=== PATIENT | male | born 1945 | race Hispanic/Latino ===

== ENCOUNTER → 2017-08-29 | Outpatient (CLI) | payer OTHER ==
[~2017-08-29] MED LIST: ASPI-1197 PO; CHOL500050 PO; CITA-107 PO; DONE5TAB26 PO; DOXY100C2 PO; FERS325 PO; FOLIC ACID PO; GLIM4TAB3 PO; LEVO5TAB13 PO; MECL-129 PO; METF500T6 PO; METO-391 PO; OMEP40CA37 PO; SIMV20TA6 PO; SITA50TA PO; TAMS0.4C32 PO; VITAMIN B12 PO
== END | disposition home or self-care (01) ==
LOC: SHCH 14:26
PROVIDERS: ATTEND Internal Medicine Cardiovascular Disease
DX: I73.9 Peripheral vascular disease, unspecified (principal)
CPT/HCPCS: 93925

== ENCOUNTER 2017-09-05 10:58 | Inpatient (IN) | payer OTHER ==
[~2017-09-05] VITALS: Ht 175.3 cm; Wt 76.0 kg
[2017-09-05 11:30] LABS: BASOPHILS % (AUTO) 0.5 % (0.0-5.0); EOSINOPHILS % (AUTO) 1.8 % (0.0-8.0); HEMATOCRIT 36.1 % (42-54); LYMPHOCYTES % (AUTO) 8.2 % (21.0-51.0); MEAN CORPUSCULAR HEMOGLOBIN 28.8 pg (27.0-33.0); MEAN CORPUSCULAR HGB CONC 35.1 g/dL (32.0-36.0); MEAN CORPUSCULAR VOLUME 81.9 fL (79-99); MONOCYTES % (AUTO) 5.5 % (3.0-13.0); PLATELET COUNT (AUTO) 147 K/uL (130-400); RED CELL DISTRIBUTION WIDTH 14.4 % (11.0-15.5); WHITE BLOOD COUNT (AUTO) 8.5 K/uL (4.8-10.8)
[2017-09-05 11:45] LABS: INR 1.06 (0.85-1.15); PARTIAL THROMBOPLASTIN TIME 30.1 SEC (26.3-35.5); PROTHROMBIN TIME 11.1 SEC (9.6-11.6)
[2017-09-05 11:53] LABS: CREATININE 1.3 mg/dL (0.5-1.5)
[2017-09-05 11:57] LABS: ALBUMIN 3.6 g/dL (3.5-5.0); BILIRUBIN,TOTAL 0.6 mg/dL (0.2-1.0); TOTAL PROTEIN, SERUM 7.1 g/dL (6.0-8.3)
[2017-09-05] MEDS ORDERED: GUAIFENESIN SUGAR-FREE 100 MG/5 ML UDCUP ONE (13:21)
[2017-09-05] MEDS ORDERED: ALBUTEROL SULFATE 0.083% 2.5 MG/3 ML INH IH ONE (13:22)
[2017-09-05] MEDS ORDERED: BENZONATATE 100 MG CAPSULE PO ONE (13:22)
[2017-09-05] MEDS ORDERED: ACETAMINOPHEN EXTRA STRENGTH 500 MG TABLET ONE (13:22)
[2017-09-05] MEDS ORDERED: ONDANSETRON HCL 4 MG/2 ML VIAL ONE (15:45)
[2017-09-05 17:50] LABS: CREATINE KINASE MB 1.1 ng/mL (0.5-3.6); CREATINE KINASE, TOTAL 130 U/L (21-232); MYOGLOBIN 175 ng/mL (10-92); TROPONIN I < 0.04 ng/mL (0.00-0.06)
[2017-09-05 18:20] VITALS: BP 113/56
[2017-09-05] MEDS: ASPIRIN 325 MG TABLET PO SCH (18:51)
[2017-09-05] MEDS ORDERED: IPRATROPIUM/ALBUTEROL SULFATE 3 ML SOLUTION IH PRN (19:00)
[2017-09-05] MEDS ORDERED: ONDANSETRON HCL 4 MG/2 ML VIAL IVP PRN (19:00)
[2017-09-05] MEDS ORDERED: ACETAMINOPHEN 325 MG TAB PO PRN (19:00)
[2017-09-05 20:00] VITALS: BP 113/56
[2017-09-05] MEDS: GUAIFENESIN SUGAR-FREE 100 MG/5 ML UDCUP PO PRN (20:02)
[2017-09-05] MEDS: DOXYCYCLINE 100MG+NS 250ML 250 ML IV SCH (21:05)
[2017-09-05] MEDS ORDERED: BENZONATATE 100 MG CAPSULE PO PRN (23:15)
[2017-09-05 23:37] VITALS: BP 101/46
[2017-09-06 03:55] VITALS: BP 90/65
[2017-09-06 04:32] LABS: HEMATOCRIT 33.2 % (42-54); MEAN CORPUSCULAR HGB CONC 34.3 g/dL (32.0-36.0); MEAN CORPUSCULAR VOLUME 81.9 fL (79-99); PLATELET COUNT (AUTO) 125 K/uL (130-400); RED BLOOD CELL COUNT(AUTO) 4.06 MIL/uL (4.50-6.20); RED CELL DISTRIBUTION WIDTH 14.9 % (11.0-15.5); WHITE BLOOD COUNT (AUTO) 7.5 K/uL (4.8-10.8)
[2017-09-06 04:51] LABS: CREATININE 1.5 mg/dL (0.5-1.5)
[2017-09-06 07:00] VITALS: BP 124/47
[2017-09-06] MEDS: ASPIRIN 325 MG TABLET PO SCH (08:15)
[2017-09-06] MEDS: OSELTAMIVIR PHOSPHATE 75 MG CAP PO SCH ×2 (08:16→21:36)
[2017-09-06] MEDS: FAMOTIDINE 20MG TAB 20 MG TAB PO SCH ×2 (08:16→21:36)
[2017-09-06] MEDS: GUAIFENESIN SUGAR-FREE 100 MG/5 ML UDCUP PO PRN ×2 (08:18→19:36)
[2017-09-06] MEDS: DOXYCYCLINE 100MG+NS 250ML 250 ML IV SCH ×2 (08:24→21:35)
[2017-09-06] MEDS ORDERED: LIDOCAINE HCL-MPF 1% 2ML VIAL IVP PRN (09:45)
[2017-09-06] MEDS ORDERED: POTASSIUM CHLORIDE 20MEQ/100ML 100 ML IV PRN (09:45)
[2017-09-06] MEDS ORDERED: GUAIFENESIN-DM 200/20 MG 10 ML PO PRN (09:45)
[2017-09-06] MEDS ORDERED: LACTULOSE 20 GM/30 ML UDCUP PO PRN (09:45)
[2017-09-06] MEDS ORDERED: POTASSIUM CHLORIDE 10% ELIXIR 20 MEQ/15 ML UDCUP PO PRN (09:45)
[2017-09-06] MEDS ORDERED: HYDRALAZINE HCL 20 MG/ML VIAL IV PRN (09:45)
[2017-09-06] MEDS ORDERED: MAG HYDROX/AL HYDROX/SIMETH ES 30 ML SUSP UDCUP PO PRN (09:45)
[2017-09-06] MEDS ORDERED: NITROGLYCERIN 0.4 MG SL TAB SL PRN (09:45)
[2017-09-06] MEDS ORDERED: ACETAMINOPHEN 325 MG TAB PO PRN ×2 (09:45)
[2017-09-06 12:11] VITALS: BP 107/37
[2017-09-06] MEDS: IPRATROPIUM/ALBUTEROL SULFATE 3 ML SOLUTION IH PRN ×2 (14:20→23:18)
[2017-09-06 16:00] VITALS: BP 101/55
[2017-09-06 19:25] VITALS: BP 96/63
[2017-09-06] MEDS: METOPROLOL SUCCINATE 25 MG PO SCH (21:00)
[2017-09-06] MEDS: **HM** LEVOCETIRIZINE 5MG PO SCH (21:00)
[2017-09-06] MEDS ORDERED: METFORMIN HCL 500 MG TABLET PO SCH (21:00)
[2017-09-06] MEDS: CITALOPRAM 20 MG TABLET PO SCH (21:36)
[2017-09-06] MEDS: TAMSULOSIN HCL 0.4 MG CAP.ER.24H PO SCH (21:36)
[2017-09-06] MEDS: ONDANSETRON HCL 4 MG/2 ML VIAL IV PRN (21:40)
[2017-09-07] VITALS (7 sets, daily range): BP systolic 95–142; BP diastolic 37–78
[2017-09-07 06:52] LABS: HEMATOCRIT 30.8 % (42-54); MEAN CORPUSCULAR HEMOGLOBIN 28.9 pg (27.0-33.0); MEAN CORPUSCULAR HGB CONC 34.8 g/dL (32.0-36.0); MEAN CORPUSCULAR VOLUME 83.1 fL (79-99); PLATELET COUNT (AUTO) 117 K/uL (130-400); RED BLOOD CELL COUNT(AUTO) 3.71 MIL/uL (4.50-6.20); WHITE BLOOD COUNT (AUTO) 6.1 K/uL (4.8-10.8)
[2017-09-07 06:54] LABS: CREATININE 1.6 mg/dL (0.5-1.5); POTASSIUM 3.7 mmol/L (3.5-5.1)
[2017-09-07 07:17] LABS: B-TYPE NATRIURETIC PEPTIDE 595 pg/mL (0-100)
[2017-09-07] MEDS: IPRATROPIUM/ALBUTEROL SULFATE 3 ML SOLUTION IH PRN (08:27)
[2017-09-07] MEDS: METOPROLOL SUCCINATE 25 MG PO SCH ×2 (09:00→20:50)
[2017-09-07] MEDS: GLIMEPIRIDE 2 MG TABLET PO SCH (10:57)
[2017-09-07] MEDS: OSELTAMIVIR PHOSPHATE 75 MG CAP PO SCH ×2 (10:57→20:44)
[2017-09-07] MEDS: FERROUS SULFATE 325 MG TABLET.DR PO SCH (10:57)
[2017-09-07] MEDS: LINAGLIPTIN 5 MG TABLET PO SCH (10:57)
[2017-09-07] MEDS: ASPIRIN 81MG TAB.CHEW PO SCH (10:57)
[2017-09-07] MEDS: DOXYCYCLINE 100MG+NS 250ML 250 ML IV SCH ×2 (10:58→20:44)
[2017-09-07] MEDS: FAMOTIDINE 20MG TAB 20 MG TAB PO SCH ×2 (11:02→20:44)
[2017-09-07] MEDS: GUAIFENESIN SUGAR-FREE 100 MG/5 ML UDCUP PO PRN (11:52)
[2017-09-07] MEDS: ONDANSETRON HCL 4 MG/2 ML VIAL IV PRN (13:42)
[2017-09-07] MEDS: POTASSIUM CHLORIDE 20 MEQ ERTAB PO PRN ×2 (16:50→18:42)
[2017-09-07] MEDS: CITALOPRAM 20 MG TABLET PO SCH (20:44)
[2017-09-07] MEDS: TAMSULOSIN HCL 0.4 MG CAP.ER.24H PO SCH (20:44)
[2017-09-07] MEDS: **HM** LEVOCETIRIZINE 5MG PO SCH (20:45)
[2017-09-08 03:55] VITALS: BP 134/49
[2017-09-08 06:14] LABS: CREATININE 1.4 mg/dL (0.5-1.5)
[2017-09-08 07:00] VITALS: BP 137/68
[2017-09-08] MEDS: METOPROLOL SUCCINATE 25 MG PO SCH ×2 (09:00→21:00)
[2017-09-08] MEDS: DOXYCYCLINE 100MG+NS 250ML 250 ML IV SCH ×2 (09:18→22:33)
[2017-09-08] MEDS: ASPIRIN 81MG TAB.CHEW PO SCH (09:19)
[2017-09-08] MEDS: FAMOTIDINE 20MG TAB 20 MG TAB PO SCH ×2 (09:19→22:34)
[2017-09-08] MEDS: LINAGLIPTIN 5 MG TABLET PO SCH (09:19)
[2017-09-08] MEDS: GLIMEPIRIDE 2 MG TABLET PO SCH (09:19)
[2017-09-08] MEDS: FERROUS SULFATE 325 MG TABLET.DR PO SCH (09:19)
[2017-09-08] MEDS: OSELTAMIVIR PHOSPHATE 75 MG CAP PO SCH ×2 (09:20→22:34)
[2017-09-08 11:00] VITALS: BP 155/49
[2017-09-08 11:59] LABS: APPEARANCE,URINE Clear (CLEAR); BILIRUBIN,URINE Negative (NEGATIVE); COLOR,URINE Yellow (YELLOW); GLUCOSE, URINE (UA) Negative (NEGATIVE); KETONES,URINE Negative (NEGATIVE); LEUKOCYTE ESTERASE ,URINE Negative (NEGATIVE); NITRATE,URINE Negative (NEGATIVE); OCCULT BLOOD,URINE Negative (NEGATIVE); PROTEIN,URINE Negative (NEGATIVE); UROBILINOGEN,URINE 0.2 mg/dL (0.2-1.0)
[2017-09-08] MEDS: FINASTERIDE 5 MG TABLET PO SCH (16:43)
[2017-09-08 17:57] VITALS: BP 111/57
[2017-09-08 19:05] VITALS: BP 178/78
[2017-09-08] MEDS: IPRATROPIUM/ALBUTEROL SULFATE 3 ML SOLUTION IH PRN (19:36)
[2017-09-08] MEDS: **HM** LEVOCETIRIZINE 5MG PO SCH (21:00)
[2017-09-08] MEDS: CITALOPRAM 20 MG TABLET PO SCH (22:34)
[2017-09-08] MEDS: TAMSULOSIN HCL 0.4 MG CAP.ER.24H PO SCH (22:34)
[2017-09-08 23:46] VITALS: BP 112/75
[2017-09-08] MEDS: GUAIFENESIN SUGAR-FREE 100 MG/5 ML UDCUP PO PRN (23:46)
[2017-09-09 04:06] VITALS: BP 138/46
[2017-09-09] MEDS: DOXYCYCLINE 100MG+NS 250ML 250 ML IV SCH ×2 (08:49→20:04)
[2017-09-09] MEDS: CYANOCOBALAMIN (VITAMIN B-12) 1,000 MCG TABLET PO SCH (08:51)
[2017-09-09] MEDS: GLIMEPIRIDE 2 MG TABLET PO SCH (08:51)
[2017-09-09] MEDS: LINAGLIPTIN 5 MG TABLET PO SCH (08:51)
[2017-09-09] MEDS: FERROUS SULFATE 325 MG TABLET.DR PO SCH (08:51)
[2017-09-09] MEDS: FOLIC ACID/VITAMIN B COMP W-C 1 MG CAPSULE PO SCH (08:51)
[2017-09-09] MEDS: FINASTERIDE 5 MG TABLET PO SCH (08:51)
[2017-09-09] MEDS: ASPIRIN 81MG TAB.CHEW PO SCH (08:51)
[2017-09-09] MEDS: METOPROLOL SUCCINATE 25 MG PO SCH ×2 (08:51→20:06)
[2017-09-09] MEDS: FAMOTIDINE 20MG TAB 20 MG TAB PO SCH ×2 (08:51→20:04)
[2017-09-09] MEDS: OSELTAMIVIR PHOSPHATE 75 MG CAP PO SCH ×2 (08:51→20:04)
[2017-09-09] MEDS: GUAIFENESIN SUGAR-FREE 100 MG/5 ML UDCUP PO PRN ×2 (09:27→18:53)
[2017-09-09 09:55] VITALS: BP 129/69
[2017-09-09 13:19] VITALS: BP 104/58
[2017-09-09 18:28] VITALS: BP 135/53
[2017-09-09 19:00] VITALS: BP 98/68
[2017-09-09] MEDS: TAMSULOSIN HCL 0.4 MG CAP.ER.24H PO SCH (20:04)
[2017-09-09] MEDS: CITALOPRAM 20 MG TABLET PO SCH (20:04)
[2017-09-09] MEDS: **HM** LEVOCETIRIZINE 5MG PO SCH (20:05)
[2017-09-10] VITALS: BP 156/54
[2017-09-10 04:00] VITALS: BP 148/50
[2017-09-10 04:59] LABS: HEMATOCRIT 34.2 % (42-54); MEAN CORPUSCULAR HEMOGLOBIN 27.4 pg (27.0-33.0); MEAN CORPUSCULAR HGB CONC 33.4 g/dL (32.0-36.0); MEAN CORPUSCULAR VOLUME 81.9 fL (79-99); NUCLEATED RED BLOOD CELLS 0.1 % (0.0-0.19); PLATELET COUNT (AUTO) 164 K/uL (130-400); RED BLOOD CELL COUNT(AUTO) 4.18 MIL/uL (4.50-6.20); RED CELL DISTRIBUTION WIDTH 14.6 % (11.0-15.5); WHITE BLOOD COUNT (AUTO) 5.7 K/uL (4.8-10.8)
[2017-09-10 05:38] LABS: POTASSIUM 3.6 mmol/L (3.5-5.1)
[2017-09-10] MEDS: POTASSIUM CHLORIDE 20 MEQ ERTAB PO PRN ×2 (06:07→12:44)
[2017-09-10] MEDS: GUAIFENESIN SUGAR-FREE 100 MG/5 ML UDCUP PO PRN (06:08)
[2017-09-10 08:00] VITALS: BP 125/73
[2017-09-10] MEDS: FERROUS SULFATE 325 MG TABLET.DR PO SCH (09:00)
[2017-09-10] MEDS: METOPROLOL SUCCINATE 25 MG PO SCH (09:00)
[2017-09-10 12:00] VITALS: BP 156/70
[2017-09-10] MEDS: CYANOCOBALAMIN (VITAMIN B-12) 1,000 MCG TABLET PO SCH (12:18)
[2017-09-10] MEDS: FAMOTIDINE 20MG TAB 20 MG TAB PO SCH (12:18)
[2017-09-10] MEDS: LINAGLIPTIN 5 MG TABLET PO SCH (12:18)
[2017-09-10] MEDS: GLIMEPIRIDE 2 MG TABLET PO SCH (12:19)
[2017-09-10] MEDS: FOLIC ACID/VITAMIN B COMP W-C 1 MG CAPSULE PO SCH (12:19)
[2017-09-10] MEDS: OSELTAMIVIR PHOSPHATE 75 MG CAP PO SCH (12:19)
[2017-09-10] MEDS: ASPIRIN 81MG TAB.CHEW PO SCH (12:20)
[2017-09-10] MEDS: FINASTERIDE 5 MG TABLET PO SCH (12:20)
[2017-09-10] MEDS: DOXYCYCLINE 100MG+NS 250ML 250 ML IV SCH (12:44)
[2017-09-15] MEDS ORDERED: ERGOCALCIFEROL (VITAMIN D2) 50,000 UNIT CAPSULE PO SCH (09:00)
== END 2017-09-10 15:30 | DRG 194 ==
LOC: EDH 10:58 → OBSVTOIN 16:00 → EDHIP 16:00 → 3DH 17:39
PROVIDERS: ADMIT Internal Medicine; ATTEND Internal Medicine
DX: J10.00 Influenza due to other identified influenza virus with unspecified type of pneumonia (principal); I50.22 Chronic systolic (congestive) heart failure; E11.65 Type 2 diabetes mellitus with hyperglycemia; I42.9 Cardiomyopathy, unspecified; I11.0 Hypertensive heart disease with heart failure; J20.9 Acute bronchitis, unspecified; J10.1 Influenza due to other identified influenza virus with other respiratory manifestations; E78.5 Hyperlipidemia, unspecified; I25.10 Atherosclerotic heart disease of native coronary artery without angina pectoris; F32.9 Major depressive disorder, single episode, unspecified; N40.1 Benign prostatic hyperplasia with lower urinary tract symptoms; R33.8 Other retention of urine; Z95.810 Presence of automatic (implantable) cardiac defibrillator; Z90.79 Acquired absence of other genital organ(s); Z95.1 Presence of aortocoronary bypass graft
CPT/HCPCS: 36415; 71045; 71046; 71250; 74176; 80048; 80053; 81003; 82550; 82553; 82948; 83874; 83880; 84484; 85025; 85027; 85610; 85730; 87088; 87633; 87804; 93005; 94640; 94664; J2405; J3490

== ENCOUNTER 2018-08-31 06:38 | Emergency (ER) | payer OTHER ==
[~2018-08-31 06:38] MED LIST changes: +METF-444 PO; -METF500T6 PO
[2018-08-31] MEDS ORDERED: ONDANSETRON HCL 4 MG/2 ML VIAL ONE (06:54)
[2018-08-31 07:13] LABS: CREATININE 1.4 mg/dL (0.5-1.5); POTASSIUM 3.9 mmol/L (3.5-5.1)
[2018-08-31] MEDS ORDERED: SODIUM CHLORIDE 0.9% 1000ML 1,000 ML IV ONE ×3 (07:18→10:43)
[2018-08-31 07:25] LABS: BASOPHILS % (AUTO) 0.6 % (0.0-5.0); EOSINOPHILS % (AUTO) 0.3 % (0.0-8.0); HEMATOCRIT 35.7 % (42-54); LYMPHOCYTES % (AUTO) 7.2 % (21.0-51.0); MEAN CORPUSCULAR HEMOGLOBIN 27.8 pg (27.0-33.0); MEAN CORPUSCULAR HGB CONC 33.2 g/dL (32.0-36.0); MEAN CORPUSCULAR VOLUME 83.8 fL (79-99); MONOCYTES % (AUTO) 4.2 % (3.0-13.0); NEUTROPHILS % (AUTO) 87.7 % (40.0-77.0); PLATELET COUNT (AUTO) 132 K/uL (130-400); RED BLOOD CELL COUNT(AUTO) 4.27 MIL/uL (4.50-6.20); RED CELL DISTRIBUTION WIDTH 13.6 % (11.0-15.5); WHITE BLOOD COUNT (AUTO) 10.7 K/uL (4.8-10.8)
[2018-08-31 07:28] LABS: ALBUMIN 3.8 g/dL (3.5-5.0); BILIRUBIN,TOTAL 0.4 mg/dL (0.2-1.0); TOTAL PROTEIN, SERUM 7.4 g/dL (6.0-8.3)
== END 2018-08-31 12:23 | disposition home or self-care (01) ==
LOC: EDH 06:38
DX: K52.9 Noninfective gastroenteritis and colitis, unspecified (principal); E86.0 Dehydration; I10 Essential (primary) hypertension; E11.9 Type 2 diabetes mellitus without complications; E78.5 Hyperlipidemia, unspecified; Z95.1 Presence of aortocoronary bypass graft; Z87.891 Personal history of nicotine dependence
CPT/HCPCS: 36415; 71045; 80053; 82150; 82550; 83690; 84484; 85025; 87804 ×2; 93005; 96361; 96374; 99284; J2405; J7030 ×3

== ENCOUNTER 2018-09-08 17:30 | Inpatient (IN) | payer OTHER ==
[~2018-09-08] VITALS: Ht 160 cm; Wt 72.6 kg
[2018-09-08 18:05] LABS: BASOPHILS % (AUTO) 0.3 % (0.0-5.0); EOSINOPHILS % (AUTO) 0.1 % (0.0-8.0); HEMATOCRIT 34.3 % (42-54); LYMPHOCYTES % (AUTO) 9.5 % (21.0-51.0); MEAN CORPUSCULAR HEMOGLOBIN 27.8 pg (27.0-33.0); MEAN CORPUSCULAR HGB CONC 33.7 g/dL (32.0-36.0); MEAN CORPUSCULAR VOLUME 82.7 fL (79-99); MONOCYTES % (AUTO) 5.6 % (3.0-13.0); NEUTROPHILS % (AUTO) 84.5 % (40.0-77.0); PLATELET COUNT (AUTO) 127 K/uL (130-400); RED BLOOD CELL COUNT(AUTO) 4.14 MIL/uL (4.50-6.20); RED CELL DISTRIBUTION WIDTH 13.7 % (11.0-15.5); WHITE BLOOD COUNT (AUTO) 5.9 K/uL (4.8-10.8)
[2018-09-08 18:44] LABS: CREATININE 1.3 mg/dL (0.5-1.5); POTASSIUM 3.9 mmol/L (3.5-5.1)
[2018-09-08 18:48] LABS: ALBUMIN 3.8 g/dL (3.5-5.0); BILIRUBIN,DIRECT 0.1 mg/dL (0.0-0.3); BILIRUBIN,TOTAL 0.6 mg/dL (0.2-1.0); TOTAL PROTEIN, SERUM 7.6 g/dL (6.0-8.3)
[2018-09-08] MEDS ORDERED: SODIUM CHLORIDE 0.9% 1000ML 1,000 ML IV ONE ×2 (18:48→21:58)
[2018-09-08] MEDS ORDERED: ONDANSETRON HCL 4 MG/2 ML VIAL ONE (18:48)
[2018-09-08 19:10] LABS: BILIRUBIN,URINE Negative (NEGATIVE); COLOR,URINE Yellow (YELLOW); GLUCOSE, URINE (UA) 500 mg/dL (NEGATIVE); KETONES,URINE Trace mg/dL (NEGATIVE); LEUKOCYTE ESTERASE ,URINE Negative (NEGATIVE); NITRATE,URINE Negative (NEGATIVE); OCCULT BLOOD,URINE Trace (NEGATIVE); PROTEIN,URINE POS 1+ (NEGATIVE); UROBILINOGEN,URINE 0.2 mg/dL (0.2-1.0)
[2018-09-08 19:11] LABS: APPEARANCE,URINE CLEAR (CLEAR)
[2018-09-08 19:28] LABS: BACTERIA,URINE Rare /HPF (None Seen); SQUAMOUS EPITHELIAL CELL,UR Rare /HPF (0-2); WBC,URINE 0-1 /HPF (0-1)
[2018-09-09] MEDS ORDERED: LACTATED RINGERS 1000ML 1,000 ML IV ONE ×2 (00:24→10:39)
[2018-09-09] MEDS ORDERED: OSELTAMIVIR PHOSPHATE 75 MG CAP ONE (00:24)
[2018-09-09] MEDS ORDERED: ACETAMINOPHEN 325 MG TAB ONE (01:09)
[2018-09-09 07:09] LABS: BASOPHILS % (AUTO) 0.4 % (0.0-5.0); EOSINOPHILS % (AUTO) 0.1 % (0.0-8.0); LYMPHOCYTES % (AUTO) 16.3 % (21.0-51.0); MEAN CORPUSCULAR HEMOGLOBIN 27.7 pg (27.0-33.0); MEAN CORPUSCULAR HGB CONC 33.3 g/dL (32.0-36.0); MEAN CORPUSCULAR VOLUME 83.4 fL (79-99); MONOCYTES % (AUTO) 6.9 % (3.0-13.0); NEUTROPHILS % (AUTO) 76.3 % (40.0-77.0); PLATELET COUNT (AUTO) 119 K/uL (130-400); RED BLOOD CELL COUNT(AUTO) 3.72 MIL/uL (4.50-6.20); RED CELL DISTRIBUTION WIDTH 13.6 % (11.0-15.5); WHITE BLOOD COUNT (AUTO) 4.2 K/uL (4.8-10.8)
[2018-09-09 07:21] LABS: CREATININE 1.2 mg/dL (0.5-1.5)
[2018-09-09 07:27] LABS: ALBUMIN 3.1 g/dL (3.5-5.0); BILIRUBIN,TOTAL 0.3 mg/dL (0.2-1.0); MAGNESIUM 0.9 mg/dL (1.80-2.40); PHOSPHORUS 3.6 mg/dL (2.5-4.9); TOTAL PROTEIN, SERUM 6.4 g/dL (6.0-8.3)
[2018-09-09] MEDS ORDERED: ASPI-555 PO (08:08)
[2018-09-09] MEDS ORDERED: CITA-107 PO (08:08)
[2018-09-09] MEDS ORDERED: METF-446 PO (08:08)
[2018-09-09] MEDS ORDERED: DONE5TAB26 PO (08:08)
[2018-09-09] MEDS ORDERED: SITA50TA PO (08:08)
[2018-09-09] MEDS ORDERED: CHOL200074 PO (08:08)
[2018-09-09] MEDS ORDERED: METO25 PO (08:08)
[2018-09-09] MEDS ORDERED: SIMV40TA59 PO (08:08)
[2018-09-09] MEDS ORDERED: OMEP40CA37 PO (08:08)
[2018-09-09] MEDS ORDERED: FOLI0.4T2 PO (08:08)
[2018-09-09] MEDS: LACTATED RINGERS 1000ML 1,000 ML IV SCH ×2 (12:30→20:59)
[2018-09-09] MEDS ORDERED: ONDANSETRON HCL 4 MG/2 ML VIAL ONE (13:54)
[2018-09-09] MEDS: INSULIN HUMULIN R 100 UNIT/ML 3ML SQ SCH ×2 (16:30→21:00)
[2018-09-09] MEDS ORDERED: LIDOCAINE HCL-MPF 1% 2ML VIAL IVP PRN (16:30)
[2018-09-09] MEDS ORDERED: ACETAMINOPHEN 325 MG TAB PO PRN ×2 (16:30)
[2018-09-09] MEDS ORDERED: HYDROMORPHONE 1 MG/1 ML AMP IV PRN (16:30)
[2018-09-09] MEDS ORDERED: POTASSIUM CHLORIDE 10% ELIXIR 20 MEQ/15 ML UDCUP PO PRN (16:30)
[2018-09-09] MEDS ORDERED: LACTULOSE 20 GM/30 ML UDCUP PO PRN (16:30)
[2018-09-09] MEDS ORDERED: ZOLPIDEM TARTRATE 5 MG TAB PO PRN (16:30)
[2018-09-09] MEDS ORDERED: MAGNESIUM 2GM PREMIX 50ML 50 ML IV PRN (16:30)
[2018-09-09] MEDS ORDERED: GUAIFENESIN-DM 200/20 MG 10 ML PO PRN (16:30)
[2018-09-09] MEDS ORDERED: MAGNESIUM 2GM PREMIX 50ML 50 ML IV ONE (17:06)
[2018-09-09] MEDS ORDERED: INSULIN HUMULIN R 100 UNIT/ML 3ML ONE (17:07)
[2018-09-09] MEDS ORDERED: FERR-82 PO (18:10)
[2018-09-09] MEDS ORDERED: CYAN500T46 PO (18:10)
[2018-09-09 20:00] VITALS: BP 148/80
[2018-09-09] MEDS: SIMVASTATIN 20 MG TABLET PO SCH (20:59)
[2018-09-09] MEDS: ZOSYN 3.375GM+NS 50ML 50 ML IV SCH (20:59)
[2018-09-09] MEDS: ONDANSETRON HCL 4 MG/2 ML VIAL IVP PRN (21:00)
[2018-09-09 23:50] VITALS: BP 136/63
[2018-09-10] VITALS (7 sets, daily range): BP systolic 94–137; BP diastolic 32–92
[2018-09-10] MEDS: ACETAMINOPHEN 325 MG TAB PO PRN (00:44)
[2018-09-10] MEDS: ZOSYN 3.375GM+NS 50ML 50 ML IV SCH ×3 (05:07→23:00)
[2018-09-10 05:23] LABS: BASOPHILS % (AUTO) 0.3 % (0.0-5.0); LYMPHOCYTES % (AUTO) 9.8 % (21.0-51.0); MEAN CORPUSCULAR HEMOGLOBIN 28.1 pg (27.0-33.0); MEAN CORPUSCULAR HGB CONC 34.2 g/dL (32.0-36.0); MEAN CORPUSCULAR VOLUME 82.1 fL (79-99); NEUTROPHILS % (AUTO) 85.9 % (40.0-77.0); PLATELET COUNT (AUTO) 102 K/uL (130-400); RED BLOOD CELL COUNT(AUTO) 3.53 MIL/uL (4.50-6.20); RED CELL DISTRIBUTION WIDTH 13.7 % (11.0-15.5); WHITE BLOOD COUNT (AUTO) 4.9 K/uL (4.8-10.8)
[2018-09-10 05:41] LABS: CREATININE 1.3 mg/dL (0.5-1.5); MAGNESIUM 1.1 mg/dL (1.80-2.40); PHOSPHORUS 3.3 mg/dL (2.5-4.9); POTASSIUM 3.5 mmol/L (3.5-5.1)
[2018-09-10] MEDS: INSULIN HUMULIN R 100 UNIT/ML 3ML SQ SCH ×4 (06:27→23:00)
[2018-09-10] MEDS: ONDANSETRON HCL 4 MG/2 ML VIAL IVP PRN (06:28)
[2018-09-10] MEDS: LACTATED RINGERS 1000ML 1,000 ML IV SCH ×2 (08:30→18:30)
[2018-09-10] MEDS ORDERED: ENOXAPARIN SODIUM 40 MG/0.4 ML SYRINGE SQ SCH (09:00)
[2018-09-10] MEDS: ASPIRIN 81MG TAB.CHEW PO SCH (09:25)
[2018-09-10] MEDS: FAMOTIDINE 20MG TAB 20 MG TAB PO SCH (09:25)
[2018-09-10] MEDS: CITALOPRAM 20 MG TABLET PO SCH (09:25)
[2018-09-10 11:51] LABS: AMYLASE 36 U/L (25-115); LIPASE 132 U/L (114-286)
[2018-09-10] MEDS: MAGNESIUM 2GM PREMIX 50ML 50 ML IV SCH (12:44)
[2018-09-10] MEDS: POTASSIUM CHLORIDE 20 MEQ ERTAB PO PRN (12:45)
[2018-09-10] MEDS: SODIUM CHLORIDE 0.9% 1000ML 1,000 ML IV SCH (14:45)
[2018-09-10] MEDS ORDERED: LEVOFLOXACIN 500 MG/D5W 100 ML 100 ML IV SCH (14:45)
[2018-09-10] MEDS ORDERED: VANCOMYCIN PROTOCOL PER PHARMACY IV SCH (14:45)
[2018-09-10] MEDS ORDERED: SODIUM CHLORIDE 3% FOR INHALATION 4 ML/AMP VIAL.NEB IH ONE (16:00)
[2018-09-10 16:07] LABS: APPEARANCE,URINE Clear (CLEAR); BILIRUBIN,URINE Negative (NEGATIVE); COLOR,URINE Yellow (YELLOW); GLUCOSE, URINE (UA) >=1000 mg/dL (NEGATIVE); KETONES,URINE Trace mg/dL (NEGATIVE); LEUKOCYTE ESTERASE ,URINE Negative (NEGATIVE); NITRATE,URINE Negative (NEGATIVE); OCCULT BLOOD,URINE Trace (NEGATIVE); PH,URINE 5.5 (5.0-8.0); PROTEIN,URINE POS 1+ (NEGATIVE); UROBILINOGEN,URINE 0.2 mg/dL (0.2-1.0)
[2018-09-10 16:15] LABS: AMPHET/METH SCREEN,URINE NEGATIVE (NEGATIVE); BARBITURATE SCREEN, URINE NEGATIVE (NEGATIVE); BENZODIAZEPINES SCREEN,URINE NEGATIVE (NEGATIVE); CANNABINOID SCREEN,URINE NEGATIVE (NEGATIVE); COCAINE SCREEN,URINE NEGATIVE (NEGATIVE); OPIATE SCREEN,URINE NEGATIVE (NEGATIVE); PHENCYCLIDINE SCREEN,URINE NEGATIVE (NEGATIVE)
[2018-09-10 16:27] LABS: AMORPHOUS SEDIMENT,UR Few /LPF (None Seen); BACTERIA,URINE Rare /HPF (None Seen); RBC,URINE None Seen /HPF (0-1); SQUAMOUS EPITHELIAL CELL,UR None Seen /HPF (0-2); WBC,URINE None Seen /HPF (0-1)
--- NOTE | 2018-09-10 17:00 | NUR ---
ARMANI LOMELI AT BEDSIDE WITH MULTIPLE FAMILY MEMBERS. PT ALERT AND PLEASENTLY CONFUSED. LIVES WITH SPOUSE, FAMILY MEMBERS LOOKING FOR PLACMENT FOR PT; RIRI WYNNE STATES SHE HAS ALREADY TALKED TO INSURANCE. FAMILY MEMBER NUMBERS ADDED RIRI WYNNE [phone] AND JOSÉ MANUEL WILY [phone]. WAITING FOR PT NOTES, VEBAL CONSENT FOR [facility], WILL FOLLOW UP IN AM Addendum: 09/11/18 at 0831 by KASANDRA MENENDEZ RN Amended: Links added.
--- NOTE | 2018-09-10 17:42 | NUR ---
Nutrition intervention: Nutrition consult for Poor appetite. At time of RD visit pt being assisted by nursing staff d/t possible s/s of aspiration with drinking water from a cup. Pt has been placed NPO, PHARMACEUTICAL SCIENTIST evaluation has been consult. RD to return for continued nutrition intervention after PHARMACEUTICAL SCIENTIST recommendations have been placed. Addendum: 09/10/18 at [address] Amended: Links added.
--- NOTE | 2018-09-10 20:24 | NUR ---
RAPID RESPONSE RAPID RESPONSE CALLED ON PATIENT DUE TO POSSIBLE ASPIRATION WHEN PT ATTEMPTED DRINKING WATER FROM A CUP, BP WNL, O2 ON RA WNL, PT WAS TACHY IN THE TEENS WITH A TEMP OF 101.0, ROOM TEMP WAS LOWERED, BLANKET OFF, AND TYLENOL SUPPOSITORY WAS GIVEN, PT WAS DIAPHORETIC WITH A TEMP RECHECK OF 99.1, PT PLACED NPO FOR A SPEECH EVAL, UCX AND UA ORDERED, ABG ALSO ORDERED AND PENDING RESULT, NURSING WILL CONTINUE TO MONITOR, CARE ENDORSED.
[2018-09-10 20:51] LABS: ABG BASE EXCESS -1.7 mmol/L (-2.0-3.0); ABG HCO3 20.6 mmol/L (21.0-28.0); ABG OXYGEN SATURATION 98.9 % (95.0-99.0); ABG PCO2 29 mmHg (35-48)
[2018-09-10] MEDS: SIMVASTATIN 20 MG TABLET PO SCH (23:01)
[2018-09-10] MEDS: ACETAMINOPHEN 650 MG SUPPOSITORY RC PRN (23:14)
[2018-09-11 04:09] VITALS: BP 119/73
[2018-09-11] MEDS: SODIUM CHLORIDE 0.9% 1000ML 1,000 ML IV SCH ×2 (04:32→17:25)
[2018-09-11 05:14] LABS: BASOPHILS % (AUTO) 0.3 % (0.0-5.0); LYMPHOCYTES % (AUTO) 12.4 % (21.0-51.0); MEAN CORPUSCULAR HEMOGLOBIN 28.1 pg (27.0-33.0); MEAN CORPUSCULAR HGB CONC 33.9 g/dL (32.0-36.0); MONOCYTES % (AUTO) 3.7 % (3.0-13.0); NEUTROPHILS % (AUTO) 83.6 % (40.0-77.0); PLATELET COUNT (AUTO) 98 K/uL (130-400); RED CELL DISTRIBUTION WIDTH 13.8 % (11.0-15.5); WHITE BLOOD COUNT (AUTO) 3.7 K/uL (4.8-10.8)
[2018-09-11 05:34] LABS: B-TYPE NATRIURETIC PEPTIDE 1530 pg/mL (0-100)
[2018-09-11 05:35] LABS: INR 1.06 (0.85-1.15); PARTIAL THROMBOPLASTIN TIME 35.7 SEC (26.3-35.5); PROTHROMBIN TIME 11.1 SEC (9.6-11.6)
[2018-09-11 05:36] LABS: CARBON DIOXIDE 28 mmol/L (21-32); CHLORIDE 98 mmol/L (101-111); CHOLESTEROL 105 mg/dL (<200); CREATININE 1.4 mg/dL (0.5-1.5); GLOMERULAR FILTR. RATE CALC 53 mL/min (>60); GLUCOSE,RANDOM 155 mg/dL (70-105); HDL CHOLESTEROL 41 mg/dL (29-71); LDL DIRECT 40 mg/dL (0-99); PHOSPHORUS 3.9 mg/dL (2.5-4.9); POTASSIUM 3.8 mmol/L (3.5-5.1); SODIUM SERUM 135 mmol/L (136-145); THYROID STIMULATING HORMONE 0.35 uIU/mL (0.36-3.74); TRIGLYCERIDES 169 mg/dL (30-200); UREA NITROGEN, BLOOD 10 mg/dL (7-18)
[2018-09-11 05:37] LABS: AMMONIA < 10 umol/L (11-32)
[2018-09-11] MEDS: ZOSYN 3.375GM+NS 50ML 50 ML IV SCH ×3 (06:03→22:28)
[2018-09-11] MEDS: INSULIN HUMULIN R 100 UNIT/ML 3ML SQ SCH ×4 (06:03→22:36)
[2018-09-11 08:00] VITALS: BP 98/53
[2018-09-11] MEDS: ASPIRIN 81MG TAB.CHEW PO SCH (09:00)
[2018-09-11] MEDS: CITALOPRAM 20 MG TABLET PO SCH (09:00)
[2018-09-11] MEDS: FAMOTIDINE 20MG TAB 20 MG TAB PO SCH (09:00)
--- NOTE | 2018-09-11 11:28 | NUR ---
DYSPHAGIA EVAL COMPLETED. +S/S OF ASPIRATION WITH THIN LIQUIDS VIA STRAW. RECOMMEND REGULAR TEXTURE, THIN LIQUIDS VIA CUP SIP; PILLS WHOLE WITH LIQUIDS PATIENT INFORMATION: PT IS A 73 YEAR OLD MALE REFERRED FOR A BEDSIDE DYSPHAGIA EVAL SECONDARY TO CHOKING EPISODE YESTERDAY REQUIRING RAPID RESPONSE. Pt WITH DAUGHTER AT BEDSIDE DURING THE EVALUATION. THEY REPORT Pt WAS DRINKING WITH A STRAW WHEN HE BEGAN TO CHOKE. Pt CURRENTLY ADMITTED SECONDARY TO INFLUENZA. Pt HAS A PAST MEDICAL HISTORY SIGNIFICANT FOR ACUTE GASTROENTERITIS,LIKELY VIRAL, DEHYDRATION, HYPOTENSION, DMII, HYPERTENSION, GERD, HYPERLIPIDEMIA, DEPRESSION, DEMENTIA, CHRONIC KIDNEY DISEASE, MYOCARDIAL INFRACTION, LACTIC ACIDOSIS, HYPOMAGNESEMIA. DENTURES IN PLACE AT THE TIME OF THE EVALUATION. PLEASE NOTE Pt PRESENTED WITH TREMORS IN RIGHT UPPER EXTREMITY WHICH HE STATES HAS BEEN OCCURRING SINCE [place] (APPROXIMATELY 2010). Pt STATES HE LIKES TO USE A STRAW BECAUSE HE SPILLS HIS DRINKS DUE TO CONSTANT SHAKING. EVALUATION: Pt PRESENTS WITH MILD PHARYNGEAL DYSPHAGIA CAUSED BY DELAYED PHARYNGEAL RESPONSE TIME, RAPID INTAKE AND LARGE VOLUMES OF BOLUS PER TRIAL RESULTING IN +S/S OF ASPIRATION WITH THIN LIQUIDS VIA STRAW OF SUPER COUGH. RECOMMENDATIONS: 1. REGULAR TEXTURE, THIN LIQUIDS; PILLS WHOLE WITH LIQUIDS. 2. COMPENSATORY STRATEGIES: *SEATED AT 90 DEGREES *SMALL BITES AND SIPS *SLOW RATE *NO STRAW *VOLUME CONTROL 3. WONDER-LUCHO CUP FOR INTAKE IN THE HOME SETTING. Pt/FAMILY EDUCATED ON SAFE SWALLOW PRECAUTIONS AND RISKS & CONSEQUENCES OF ASPIRATION. THEY VERBALIZED UNDERSTANDING AND COMPLIANCE WITH RECOMMENDATIONS. G-CODES SWALLOWING: [id number] Addendum: 09/11/18 at 1147 by HERI OSWALD Amended: Links added.
[2018-09-11 12:00] VITALS: BP 100/58
[2018-09-11] MEDS ORDERED: COMPOUND IV REFRIGERATED 1 EACH IVSOLN MISC PRN (12:45)
[2018-09-11] MEDS ORDERED: VANCOMYCIN 1.5 GM in SODIUM CHLORIDE 0.9% 250 ML IV SCH (13:00)
[2018-09-11] MEDS ORDERED: LIDOCAINE HCL MPF 1% 5ML VIAL ONE (14:20)
--- NOTE | 2018-09-11 15:15 | NUR ---
LUMBAR PUNCTURE PROCEDURE PERFORMED BY DR Willam LA. PUNCTURE SITE LOW BACK. PATIENT TOLERATED PROCEDURE WELL. END OF PROCEDURE AT 1510. SPINAL NEEDLE REMOVED AND BAND AID APPLIED WITH NO BLEEDING NOTED. REPORT GIVEN TO [place] COSTA RN AND PATIENT TRANSPORTED TO [facility] VIA BED. AAO X3 WITH NO C/O PAIN. SPECIMEN SENT TO LAB.
[2018-09-11 16:00] VITALS: BP 121/79
--- NOTE | 2018-09-11 16:24 | NUR ---
Nutrition f/u: Pt with diet advanced to heart healthy, s/p bedside evaluation by BUCKLE ATTACHER after s/s of aspiration from drinking water with a straw. BUCKLE ATTACHER recommendations of regular texture, thin liquids, no straw. Pt with diet advanced to heart healthy. Pt's daughter reports pt has good appetite however dislikes hospital proteins. Recommendations: Glucerna-Nutrition supplementation after dinner for added protein. Recommend diet modification to [id number] for appropriate diet placement. RD to continue monitoring pt's nutritional status and blood sugar status.
--- NOTE | 2018-09-11 17:00 | NUR ---
CM DCP UPDATE SENT REFERRAL TO [facility] PER FAMILY/PT REQUEST AND ADVISED THEM THAT NO AUTH WOULD TAKE PLACE OVER THE WEEKEND, JUST UPDATED ON THE PT'S CHANGES IN STATUS AND WHEN UPDATE SENT, INCLUDED THE PENDING CSF ORDERS IN THE REFERRAL
[2018-09-11 17:05] LABS: APPEARANCE,CSF CLEAR (CLEAR); COLOR,CSF COLORLESS (COLORLESS); CSF TOTAL VOLUME 9.5 mL; CSF TUBE NUMBER 1; WHITE BLOOD CELL1,CSF 3 CMM (0-5)
[2018-09-11 17:07] LABS: RED BLOOD CELL1,CSF 147 CMM (0-0)
[2018-09-11] MEDS: DOXYCYCLINE 100MG+NS 250ML 250 ML IV SCH ×2 (17:32→22:26)
[2018-09-11] MEDS: ACETAMINOPHEN 650 MG SUPPOSITORY RC PRN (18:25)
[2018-09-11] MEDS: ACETAMINOPHEN 325 MG TAB PO PRN (18:33)
[2018-09-11 20:00] VITALS: BP 122/46
[2018-09-11] MEDS: SIMVASTATIN 20 MG TABLET PO SCH (22:26)
[2018-09-12] VITALS (20 sets, daily range): BP systolic 98–148; BP diastolic 30–101
--- NOTE | 2018-09-12 01:51 | NUR ---
Re: Report from Central monitoring ST 140's Checked pt, noted having BM at this time, on a bedpan, denies discomfort, will monitor if HR will sustain in the 140's post BM in 5 to 10 minutes. Central monitoring c/o Justina made aware.
[2018-09-12] MEDS: ACETAMINOPHEN 325 MG TAB PO PRN (02:38)
--- NOTE | 2018-09-12 02:42 | NUR ---
Re: HR sustaining in the 140's Pt denies any pain c/o of feeling too cold, with 2 blanket on, VS re-checked BP 121/57, P 147, R 18, T 100.8, O2 sat 98% on 3L/NC, medicated with Tylenol 650mg po, off blanket, application of cold compress to the head done, will continue to monitor.
--- NOTE | 2018-09-12 03:40 | NUR ---
Temp re-checked, 99.8, current rhythm remain sinus tach at 118
[2018-09-12 04:33] LABS: HEMATOCRIT 28.9 % (42-54); MEAN CORPUSCULAR HEMOGLOBIN 27.8 pg (27.0-33.0); MEAN CORPUSCULAR HGB CONC 33.6 g/dL (32.0-36.0); MEAN CORPUSCULAR VOLUME 82.6 fL (79-99); NUCLEATED RED BLOOD CELLS 0.1 % (0.0-0.19); PLATELET COUNT (AUTO) 84 K/uL (130-400); RED BLOOD CELL COUNT(AUTO) 3.49 MIL/uL (4.50-6.20); RED CELL DISTRIBUTION WIDTH 13.7 % (11.0-15.5)
[2018-09-12 04:44] LABS: B-TYPE NATRIURETIC PEPTIDE 1670 pg/mL (0-100)
[2018-09-12 05:00] LABS: BAND NEUTROPHILS % (MANUAL) 3 % (0-2); BASOPHILS % (MANUAL) 1 % (0-2); EOSINOPHILS % (MANUAL) 1 % (1-6); LYMPHOCYTES % (MANUAL) 13 % (22-44); MAN.DIFF COMMENT-IMPRESSION MANUAL DIFFERENTIAL; MONOCYTES % (MANUAL) 1 % (2-9); SEGMENTED NEUTROPHILS % 81 % (40-70)
[2018-09-12] MEDS: ZOSYN 3.375GM+NS 50ML 50 ML IV SCH ×3 (05:23→20:12)
[2018-09-12] MEDS: SODIUM CHLORIDE 0.9% 1000ML 1,000 ML IV SCH (05:23)
[2018-09-12] MEDS: INSULIN HUMULIN R 100 UNIT/ML 3ML SQ SCH ×4 (07:10→20:28)
[2018-09-12] MEDS: FAMOTIDINE 20MG TAB 20 MG TAB PO SCH (08:40)
[2018-09-12] MEDS: ASPIRIN 81MG TAB.CHEW PO SCH (08:40)
[2018-09-12] MEDS: CITALOPRAM 20 MG TABLET PO SCH (08:40)
[2018-09-12] MEDS: VANCOMYCIN 1GM+NS 250ML IV SCH (08:41)
[2018-09-12] MEDS: DOXYCYCLINE 100MG+NS 250ML 250 ML IV SCH ×2 (11:37→21:33)
--- NOTE | 2018-09-12 12:13 | NUR ---
DYSPHAGIA FOLLOW-UP COMPLETED. PATIENT WAS SEEN AT BEDSIDE WITH SON AND DAUGHTER PRESENT. PATIENT WAS ALERT AND COOPERATIVE DURING TREATMENT SESSION. DIE HARDENER ANALYZED PATIENT'S SWALLOWING ABILITY DURING REGULAR MEAL. PATIENT PRESENTS WITH IMPULSIVE BEHAVIOR ATTEMPTING TO GULP THIN LIQUIDS. ACTIVE COUGH REFLEX OBSERVED WITH LARGE VOLUMES OF LIQUID. DIE HARDENER EDUCATED PATIENT AND FAMILY ON SAFE SWALLOW TECHNIQUES INCLUDING: ALTERNATING SIPS AND BITES, SMALL SIPS AND BITES, NO STRAWS, SLOW EATING PACE, THOROUGH MASTICATION OF BOLUS, AND VOLUME CONTROL IN ORDER TO MAINTAIN PATIENT'S SAFETY AND PREVENT CHOKING EPISODES. PATIENT REQUIRES MAXIMUM REMINDERS AND TACTILE CUES TO MODULATE EATING PACE. ORAL RESIDUE OBSERVED IN ORAL CAVITY POST SWALLOW OF REGULAR BOLUS. RESIDUE CLEARED WITH LIQUID WASH. PER DAUGHTER, FAMILY HAS ORDERED ADAPTIVE FEEDING EQUIPMENT INCLUDING VOLUME CONTROL CUP AND WEIGHTED EATING UTENSILS TO FACILITATE PATIENT'S ABILITY TO SELF-FEED. DIE HARDENER WILL CONTINUE TO FOLLOW PATIENT. Addendum: 09/12/[address] PRIYA LYN Amended: Links added.
[2018-09-12] MEDS ORDERED: MAGNESIUM 2GM PREMIX 50ML 50 ML IV PRN (14:30)
--- NOTE | 2018-09-12 15:00 | NUR ---
O2 raised to 4L
--- NOTE | 2018-09-12 15:00 | NUR ---
concern family called me to room. father c/o of shortness of breath and mildly confused. Dr. Levy notified. CXR and EKG ordered. Dr. Levy previously rounded [id number]. Pt was AAOx3 with no signs of distress. family at bedside. pending results of EKD and CXR
--- NOTE | 2018-09-12 15:25 | NUR ---
ICU order Dr. Levy called with EKG results and CXR in system. informed doc of lower BP but due to medical hx of patient, no bolus, and no medication to be given to help lower elevated heart rate of 140-145. Order for Albumin 25% 100ml ordered and ICU transfer.
[2018-09-12] MEDS: ALBUMIN (HUMAN) 25% 100 ML IV SCH ×2 (15:40→20:12)
--- NOTE | 2018-09-12 15:40 | NUR ---
report called ICU, report given to Amara. pt transferred on O2, Albumin hanging. pt shows no signs of distress or confusion. MD notified of changes but need to manage BP is priority. transfer initiated and completed.
--- NOTE | 2018-09-12 16:00 | NUR ---
PATIENT RECEIVED PATIENT APPEARS SHORT OF BREATH AND BREATHING WITH ACCESSORY MUSCLES. PATIENT FOUND TO BE FEBRILE 102.1, TYLENOL SUPPOSITORY GIVEN IMMEDIATELY AND ICE PACKS PLACED. SINUS TACHYCARDIA WITH OCCASIONAL PVC'S NOTED, STAT MAGNESIUM AND POTASSIUM ORDERED. INITIAL BLOOD PRESSURE 128/82 @ 1555. REPEAT BP NOW 147/34 AFTER INFUSION OF ALBUMIN.
[2018-09-12] MEDS: ACETAMINOPHEN 650 MG SUPPOSITORY RC PRN (16:11)
[2018-09-12] MEDS: MAGNESIUM 2GM PREMIX 50ML 50 ML IV SCH (16:42)
[2018-09-12 16:48] LABS: MAGNESIUM 1.4 mg/dL (1.80-2.40); POTASSIUM 3.5 mmol/L (3.5-5.1)
--- NOTE | 2018-09-12 17:45 | NUR ---
FEVER BROKE, NOW 99.5 PATIENT IS NOW MORE ALERT AND COHERENT, SMILING. HR NOW DOWN TO 111, BP 148/101
--- NOTE | 2018-09-12 19:00 | NUR ---
ASSESSMENT ASSUMED CARE. LETHARGIC, AROUSABLE. ORIENTED TO PERSON & PLACE. REORIENTED TO DATE & TIME. DAUGHTER AT BEDSIDE. INSTRUCTED BOTH ON PLAN OF CARE. FULL ASSESSMENT DOCUMENTED. AFEBRILE AT THIS TIME. CALL LIGHT WITHIN REACH. INSTRUCTED TO CALL FOR ASSISTANCE.
[2018-09-12] MEDS ORDERED: SODIUM CHLORIDE 0.9% 1000ML 1,000 ML IV ONE (20:09)
[2018-09-12] MEDS: SIMVASTATIN 20 MG TABLET PO SCH (20:12)
--- NOTE | 2018-09-12 21:00 | NUR ---
RISK FOR ASPIRATION REQUESTS WATER. INSTRUCTED ON HOB ELEVATED TO 45 DEGREES AND SMALL SIPS PER SPEECH THERAPIST'S EVALUATION IN ORDER TO PREVENT ASPIRATION. VERBALIZED UNDERSTANDING.
[2018-09-13] VITALS (24 sets, daily range): BP systolic 71–165; BP diastolic 27–108
[2018-09-13] MEDS: ACETAMINOPHEN 650 MG SUPPOSITORY RC PRN (01:26)
--- NOTE | 2018-09-13 01:26 | NUR ---
TYLENOL SUPPOSITORY. TEMP 100.0F. SHIVERING, C/O CHILLS, SINUS TACHYCARDIA WITH HR 138 TO 160BPM. SHALLOW LABORED BREATHING NOTED O2 3L NC WITH O2 SAT 92%. REMOVED BLANKET. GAVE TYLENOL SUPPOSITORY PER RECTUM PER PRN ORDER. UPDATED PATIENT AND DAUGHTER AT BEDSIDE. PAGED BENCHMARK ON-CALL.
[2018-09-13] MEDS ORDERED: IPRATROPIUM 0.5 MG/2.5 ML INH IH ONE (01:55)
[2018-09-13] MEDS ORDERED: FUROSEMIDE 10 MG/ML 4ML VIAL ONE (02:00)
[2018-09-13] MEDS: IPRATROPIUM 0.5 MG/2.5 ML INH IH SCH ×4 (02:00→23:55)
[2018-09-13] MEDS ORDERED: FUROSEMIDE 10 MG/ML 4ML VIAL IV STA (02:21)
[2018-09-13] MEDS ORDERED: IPRATROPIUM 0.5 MG/2.5 ML INH IH PRN (02:30)
--- NOTE | 2018-09-13 02:36 | NUR ---
RECEIVED CALL BACK FROM DONNA SHI UPDATED REGARDING PT'S TEMP, TACHYCARDIA, LABS, BP, DIFFICULTY BREATHING. ORDERS RECEIVED AND CARRIED OUT. INSERTED DE LA O CATHETER USING STERILE TECHNIQUE. INSTRUCTED ON PROCEDURE AND INDICATION. PATIENT VERY COMPLIANT AND COOPERATIVE. GAVE LASIX 40MG IV ORDERD. R.T. HERE AND ADMINISTERED NEB TX ORDERED. UPDATED PATIENT AND DAUGHTER.
--- NOTE | 2018-09-13 04:00 | NUR ---
BREATHING LESS LABORED AFTER LASIX. DIURESED 1050ML YELLOW CLEAR URINE. DENIES PAIN AND DISCOMFORT AT THIS TIME.
[2018-09-13 04:03] LABS: BASOPHILS % (AUTO) 0.3 % (0.0-5.0); HEMATOCRIT 25.8 % (42-54); LYMPHOCYTES % (AUTO) 13.3 % (21.0-51.0); MEAN CORPUSCULAR VOLUME 82.3 fL (79-99); NEUTROPHILS % (AUTO) 76.4 % (40.0-77.0); PLATELET COUNT (AUTO) 95 K/uL (130-400); RED BLOOD CELL COUNT(AUTO) 3.13 MIL/uL (4.50-6.20); RED CELL DISTRIBUTION WIDTH 13.9 % (11.0-15.5); WHITE BLOOD COUNT (AUTO) 3.9 K/uL (4.8-10.8)
[2018-09-13] MEDS: ZOSYN 3.375GM+NS 50ML 50 ML IV SCH (04:18)
[2018-09-13] MEDS: ALBUMIN (HUMAN) 25% 100 ML IV SCH (04:19)
[2018-09-13 04:40] LABS: CREATININE 1.5 mg/dL (0.5-1.5); MAGNESIUM 1.7 mg/dL (1.80-2.40); POTASSIUM 3.4 mmol/L (3.5-5.1)
[2018-09-13] MEDS: MAGNESIUM 2GM PREMIX 50ML 50 ML IV SCH (05:01)
[2018-09-13] MEDS: POTASSIUM CHLORIDE 20MEQ/100ML 100 ML IV PRN (05:02)
--- NOTE | 2018-09-13 05:49 | NUR ---
REPLACING POTASSIUM AND MAGNESIUM PER PROTOCOL. REFER TO EMAR
[2018-09-13] MEDS: INSULIN HUMULIN R 100 UNIT/ML 3ML SQ SCH ×4 (06:36→20:33)
--- NOTE | 2018-09-13 06:57 | NUR ---
ENDORSED CARE TO JAIDA CARRANZA. PATIENT RESTING IN BED. NO DISTRESS NOTED. DAUGHTER AT BEDSIDE. INSTRUCTED ON PLAN OF CARE.
--- NOTE | 2018-09-13 08:33 | NUR ---
DR SERVIN ROUNDS AT BEDSIDE-UPDATE ON V/S,LAB,IO'S,MEDS,XRAY. ORDERS RECEIVED
[2018-09-13] MEDS: POTASSIUM CHLORIDE 20 MEQ ERTAB PO PRN (08:46)
[2018-09-13] MEDS: VANCOMYCIN 1GM+NS 250ML IV SCH (08:47)
[2018-09-13] MEDS: ASPIRIN 81MG TAB.CHEW PO SCH (08:48)
[2018-09-13] MEDS: CITALOPRAM 20 MG TABLET PO SCH (08:48)
[2018-09-13] MEDS: FAMOTIDINE 20MG TAB 20 MG TAB PO SCH (08:48)
[2018-09-13] MEDS: ACETAMINOPHEN 325 MG TAB PO PRN (08:49)
[2018-09-13] MEDS ORDERED: OSELTAMIVIR PHOSPHATE 75 MG CAP PO SCH (09:00)
[2018-09-13] MEDS ORDERED: FUROSEMIDE 10 MG/ML 4ML VIAL IV SCH ×2 (09:00)
[2018-09-13] MEDS ORDERED: COMPOUND PO MISCELLANEOUS 1 EACH MISC MISC PRN (09:45)
[2018-09-13] MEDS: OSELTAMIVIR PHOSPHATE 300 MG, COMPOUNDING VEHICLE SF NO.9 50 ML PO SCH ×4 (10:36→20:33)
[2018-09-13] MEDS: DOXYCYCLINE 100MG+NS 250ML 250 ML IV SCH ×2 (10:41→21:43)
[2018-09-13] MEDS ORDERED: MEROPENEM 1 GM VIAL IVP SCH (11:00)
[2018-09-13 11:52] LABS: INR 1.07 (0.85-1.15); PARTIAL THROMBOPLASTIN TIME 42.2 SEC (26.3-35.5); PROTHROMBIN TIME 11.2 SEC (9.6-11.6)
[2018-09-13] MEDS: MEROPENEM 1 GM VIAL IVP SCH ×2 (12:18→23:51)
[2018-09-13] MEDS: FLUCONAZOLE 400 MG/NS 200 ML 200 ML IV SCH (12:19)
--- NOTE | 2018-09-13 13:37 | NUR ---
PT EXPRESSES THAT HE FEELS BETTER AND IS GRACIOUS FOR OUR HELP
--- NOTE | 2018-09-13 19:15 | NUR ---
ASSESSMENT ASSUMED CARE. AA&OX2. DENIES PAIN AT THIS TIME. SOB NOTED WITH EXERTION. O2 3L NC WITH O2 SAT 97%. ENCOURAGED COUGH AND DEEP BREATHING. BEDSIDE MONITORING SINUS TACHYCARDIA HR 101-110. AFEBRILE AT THIS TIME WITH TEMP 97.9 F. DE LA O CATHETER DRAINING TO GRAVITY. DAUGHTER AT BEDSIDE. INSTRUCTED BOTH ON PLAN OF CARE. VERBALIZED UNDERSTANDING. INSTRUCTED TO CALL FOR ASSISTANCE. CALL LIGHT WITHIN REACH.
--- NOTE | 2018-09-13 19:15 | NUR ---
HAND OFF REPORT GIVEN TO LORRIE SENA
[2018-09-13] MEDS: SIMVASTATIN 20 MG TABLET PO SCH (20:33)
--- NOTE | 2018-09-13 20:35 | NUR ---
C/O GENERALIZED BODY ACHES AND CHILLS. AFEBRILE AT THIS TIME WITH ORAL TEMP 98.5F. REPOSITIONED FOR COMFORT. C/O FEELING COLD AND SWEATY. GAVE BED BATH, CHANGED GOWN & LINEN. INSTRUCTED ON TURNING ONTO SIDES Q2HR AND COUGH AND DEEP BREATHING TO FACILITATE PHLEGM EXPECTORATION. TYLENOL 650MG PO GIVEN PER PRN ORDER.
--- NOTE | 2018-09-13 21:20 | NUR ---
TEMP 101.0F ORAL REMOVED ALL BLANKETS, DECREASED ROOM TEMPERATURE, COOL CLOTH PLACED ON FOREHEAD. SINUS TACHYCARDIA WITH HR UP TO 140BPM. ALERT & AWAKE, FACIAL FLUSHING NOTED. SKIN WARM AND MOIST. DENIES SOB, ALTHOUGH SOB NOTED WITH EXERTION. O2 SAT 95-97% ON 2L NC. WILL CONTINUE TO MONITOR.
--- NOTE | 2018-09-13 22:30 | NUR ---
TEMP 98.9 F ORAL MORE ALERT. STATES NOT FEELING SLEEPY & FEELS BETTER. DENIES PAIN, CHILLS, & DISCOMFORT.
[2018-09-14] VITALS (25 sets, daily range): BP systolic 105–146; BP diastolic 29–100
[2018-09-14] MEDS: IPRATROPIUM 0.5 MG/2.5 ML INH IH SCH ×5 (02:00→23:31)
[2018-09-14 03:40] LABS: BASOPHILS % (AUTO) 0.2 % (0.0-5.0); EOSINOPHILS % (AUTO) 0.4 % (0.0-8.0); HEMATOCRIT 26.6 % (42-54); LYMPHOCYTES % (AUTO) 23.9 % (21.0-51.0); MEAN CORPUSCULAR HEMOGLOBIN 28.3 pg (27.0-33.0); MEAN CORPUSCULAR HGB CONC 34.4 g/dL (32.0-36.0); MEAN CORPUSCULAR VOLUME 82.3 fL (79-99); MONOCYTES % (AUTO) 8.1 % (3.0-13.0); NEUTROPHILS % (AUTO) 67.4 % (40.0-77.0); NUCLEATED RED BLOOD CELLS 0.1 % (0.0-0.19); PLATELET COUNT (AUTO) 117 K/uL (130-400); RED BLOOD CELL COUNT(AUTO) 3.23 MIL/uL (4.50-6.20); RED CELL DISTRIBUTION WIDTH 13.8 % (11.0-15.5); WHITE BLOOD COUNT (AUTO) 4.4 K/uL (4.8-10.8)
--- NOTE | 2018-09-14 04:00 | NUR ---
TEMP 101.0 F HR UP TO 160, SINUS TACHYCARDIA. BED BATH GIVEN, CHANGED GOWN & ALL LINEN. GAVE TYLENOL SUPPOSITORY PER RECTUM & NORCO PO X1 PER PRN ORDER. TRANSFERRED TO BEDSIDE CHAIR. 2 PERSON MAX ASSIST, PUSHES AWAY AND WAS NOT ABLE TO BEAR WEIGHT ON LEGS. SETTLED IN RECLINER, ELEVATED BLE'S. REPORTS FEELING BETTER. HR DOWN TO 120.
[2018-09-14 04:03] LABS: CREATININE 1.5 mg/dL (0.5-1.5); MAGNESIUM 1.8 mg/dL (1.80-2.40); POTASSIUM 3.2 mmol/L (3.5-5.1)
[2018-09-14] MEDS: ACETAMINOPHEN 650 MG SUPPOSITORY RC PRN (04:11)
[2018-09-14] MEDS: HYDROCODONE/ACETAMINOPHEN 5/325 MG TAB PO PRN (04:11)
[2018-09-14] MEDS: POTASSIUM CHLORIDE 20 MEQ ERTAB PO PRN ×3 (04:19→13:57)
[2018-09-14] MEDS: MAGNESIUM 2GM PREMIX 50ML 50 ML IV SCH ×2 (04:19→17:50)
--- NOTE | 2018-09-14 05:54 | NUR ---
TEMP 98.9 RESTING IN BED. NO DISTRESS NOTED. O2 2L NC. O2 SAT 99% NO COMPLAINTS AT THIS TIME.-
[2018-09-14] MEDS: INSULIN HUMULIN R 100 UNIT/ML 3ML SQ SCH ×4 (06:35→20:39)
--- NOTE | 2018-09-14 07:00 | NUR ---
ENDORSED CARE TO JAIDA FUNEZ.
[2018-09-14] MEDS: CITALOPRAM 20 MG TABLET PO SCH (09:12)
[2018-09-14] MEDS: FAMOTIDINE 20MG TAB 20 MG TAB PO SCH (09:12)
[2018-09-14] MEDS: VANCOMYCIN 1GM+NS 250ML IV SCH (09:12)
[2018-09-14] MEDS: ASPIRIN 81MG TAB.CHEW PO SCH (09:15)
[2018-09-14] MEDS: OSELTAMIVIR PHOSPHATE 300 MG, COMPOUNDING VEHICLE SF NO.9 50 ML PO SCH ×4 (09:16→20:41)
[2018-09-14] MEDS ORDERED: VANCOMYCIN 500MG+NS 100ML 100 ML IV SCH (09:45)
[2018-09-14 09:46] LABS: CRP QUANTITATIVE 179.5 mg/L (0.00-9.0)
--- NOTE | 2018-09-14 10:22 | NUR ---
13 BEAT RUN OF VTACH - ASYMPTOMATIC - NO DISTRESS.
--- NOTE | 2018-09-14 11:00 | NUR ---
AIR MATTRESS PUMP TO BED ON SPR PLUS SETTING
--- NOTE | 2018-09-14 12:17 | NUR ---
CXR FOR PICC PLACEMENT.
[2018-09-14] MEDS: DOXYCYCLINE 100MG+NS 250ML 250 ML IV SCH ×2 (12:35→22:11)
[2018-09-14] MEDS: MEROPENEM 1 GM VIAL IVP SCH (12:35)
[2018-09-14] MEDS: FLUCONAZOLE 400 MG/NS 200 ML 200 ML IV SCH (13:55)
[2018-09-14] MEDS: CYANOCOBALAMIN (VITAMIN B-12) 1,000 MCG TABLET PO SCH (13:56)
[2018-09-14] MEDS: FOLIC ACID 1 MG TABLET PO SCH (13:56)
[2018-09-14 15:18] LABS: ROCKY MT SPOTTED FEVER IGG <1:64 (Neg:<1:64); TYPHUS FEVER AB IGG <1:64 (Neg:<1:64)
[2018-09-14] MEDS ORDERED: SODIUM CHLORIDE 3% FOR INHALATION 4 ML/AMP VIAL.NEB IH ONE (15:39)
--- NOTE | 2018-09-14 16:15 | NUR ---
TURN: REFUSES TO TURN - ADVISED OF REDNESS TO SACRAL AREA AND INSTRUCTED ON PULMONARY REASONS FOR TURNING - AGREED TO TURN.
[2018-09-14 17:10] LABS: MAGNESIUM 1.9 mg/dL (1.80-2.40); POTASSIUM 3.8 mmol/L (3.5-5.1)
--- NOTE | 2018-09-14 18:10 | NUR ---
T/C TO DR. SERVIN RE: 3 EPISODES OF ASYMPTOMATIC V-TACH 7 - 13 BEATS W/O AICD INTERVENTION. SEE ORDERS
--- NOTE | 2018-09-14 18:20 | NUR ---
SPOKE TO DR. PARKER - UPDATE ON CASE AND LYTES/REPLACEMENT - REQUESTS TO NOTIFY DR. SOLER IN A.M.
--- NOTE | 2018-09-14 19:46 | NUR ---
C/O PLEURITIC CHEST PAIN DURING COUGH. WILL MEDICATE
[2018-09-14] MEDS: SIMVASTATIN 20 MG TABLET PO SCH (20:41)
[2018-09-15] VITALS (30 sets, daily range): BP systolic 87–146; BP diastolic 27–88
[2018-09-15] MEDS: MEROPENEM 1 GM VIAL IVP SCH ×3 (00:13→23:06)
[2018-09-15] MEDS: IPRATROPIUM 0.5 MG/2.5 ML INH IH SCH ×5 (02:00→23:51)
[2018-09-15] MEDS: INSULIN HUMULIN R 100 UNIT/ML 3ML SQ SCH ×4 (06:04→20:44)
[2018-09-15 06:10] LABS: BASOPHILS % (AUTO) 0.4 % (0.0-5.0); EOSINOPHILS % (AUTO) 1.8 % (0.0-8.0); HEMATOCRIT 27.1 % (42-54); LYMPHOCYTES % (AUTO) 27.6 % (21.0-51.0); MEAN CORPUSCULAR HEMOGLOBIN 27.5 pg (27.0-33.0); MEAN CORPUSCULAR HGB CONC 33.3 g/dL (32.0-36.0); MEAN CORPUSCULAR VOLUME 82.8 fL (79-99); MONOCYTES % (AUTO) 7.8 % (3.0-13.0); NEUTROPHILS % (AUTO) 62.4 % (40.0-77.0); PLATELET COUNT (AUTO) 168 K/uL (130-400); RED BLOOD CELL COUNT(AUTO) 3.28 MIL/uL (4.50-6.20); RED CELL DISTRIBUTION WIDTH 14.4 % (11.0-15.5); WHITE BLOOD COUNT (AUTO) 4.4 K/uL (4.8-10.8)
[2018-09-15 06:22] LABS: CREATININE 1.3 mg/dL (0.5-1.5); MAGNESIUM 1.8 mg/dL (1.80-2.40); PHOSPHORUS 2.2 mg/dL (2.5-4.9); POTASSIUM 3.6 mmol/L (3.5-5.1)
--- NOTE | 2018-09-15 07:45 | NUR ---
SEDATED PER AT [facility] FOR INTUBATION - SEE ORDERS/EMAR Addendum: 09/15/18 at 2004 by ARMIN JAVIER RN RN WRONG CHART
--- NOTE | 2018-09-15 08:20 | NUR ---
REPOSITIONING OF ETT BY Rad PER MD INSTRUCTIONS AFTER XRAYS. Addendum: 09/15/18 at 2002 by ARMIN JAVIER RN RN WRONG CHART
--- NOTE | 2018-09-15 09:00 | NUR ---
ASSESS: IN GOOD SPIRITS. EXPLAINED IMPORTANCE OF CDB EXERCISES NURSE DID WITH HIM YESTERDAY AND PT STATES HE DOESN'T REMEMBER, SO DAUGHTER STATES HE FORGETS - DAUGHTER ENCOURAGED TO TAKE THE LEAD FOR HIM AND MAKE HIM DO IT EVERY HOUR AND TO TEACH OTHER FAMILY MEMBERS.
[2018-09-15] MEDS: CITALOPRAM 20 MG TABLET PO SCH (10:02)
[2018-09-15] MEDS: FAMOTIDINE 20MG TAB 20 MG TAB PO SCH (10:02)
[2018-09-15] MEDS: POTASSIUM CHLORIDE 20 MEQ ERTAB PO PRN (10:02)
[2018-09-15] MEDS: FOLIC ACID 1 MG TABLET PO SCH (10:02)
[2018-09-15] MEDS: ASPIRIN 81MG TAB.CHEW PO SCH (10:02)
[2018-09-15] MEDS: MAGNESIUM 2GM PREMIX 50ML 50 ML IV SCH (10:03)
[2018-09-15] MEDS: OSELTAMIVIR PHOSPHATE 300 MG, COMPOUNDING VEHICLE SF NO.9 50 ML PO SCH ×4 (10:03→20:38)
[2018-09-15] MEDS: CYANOCOBALAMIN (VITAMIN B-12) 1,000 MCG TABLET PO SCH (10:03)
[2018-09-15] MEDS: DOXYCYCLINE 100MG+NS 250ML 250 ML IV SCH ×2 (10:03→21:15)
[2018-09-15] MEDS: VANCOMYCIN 1.5 GM in SODIUM CHLORIDE 0.9% 250 ML IV SCH (10:18)
[2018-09-15] MEDS: FUROSEMIDE 10 MG/ML 2ML VIAL IV SCH ×2 (11:55→20:37)
--- NOTE | 2018-09-15 13:00 | NUR ---
RT MONIKA LONG INSERTED AND PLACEMENT VERIFIED - NO RESIDUAL - TO LOW INTERMITTENT SUCTION. Addendum: 09/15/18 at 2001 by ARMIN JAVIER RN RN DENTON LEE
[2018-09-15] MEDS ORDERED: ADENOSINE 3 MG/ML 2ML VIAL IV ONE (13:31)
--- NOTE | 2018-09-15 13:35 | NUR ---
DR. SOLER AT [facility] WITH PT IN SVT 140S IN NO DISTRESS - ADENOSINE [address] SOLER - HR DOWN TO 80 - 90 FOR LESS THAN A MINUTE THEN UP AGAIN - INSTRUCTED TO GIVE LOPRESSOR 5MG SIVP AND RESUM PO METOPROLOL 12.5. PT WILL REMAIN IN ICU.
[2018-09-15] MEDS ORDERED: METOPROLOL TARTRATE 1 MG/ML 5ML VIAL IV ONE (13:44)
[2018-09-15] MEDS ORDERED: METOPROLOL TARTRATE 1 MG/ML 5ML VIAL IV SCH (13:45)
[2018-09-15] MEDS ORDERED: ADENOSINE 3 MG/ML 2ML VIAL IV SCH (13:45)
[2018-09-15] MEDS: POTASSIUM CHLORIDE 20MEQ/100ML 100 ML IV PRN ×2 (13:46→21:13)
[2018-09-15] MEDS: FLUCONAZOLE 400 MG/NS 200 ML 200 ML IV SCH (13:47)
--- NOTE | 2018-09-15 13:55 | NUR ---
RETURNED TO RM TO GIVE LOPRESSOR AND B/P LOW WITH HR 102, SO HELD AT THIS TIME.
--- NOTE | 2018-09-15 14:00 | NUR ---
DR. SERVIN AND JUSTO NOTIFIED OF POISITIVE WEST NILE IGG - NO NEW ORDERS.
[2018-09-15 14:19] LABS: ROCKY MT SPOTTED FEVER IGG <1:64 (Neg:<1:64); TYPHUS FEVER AB IGG <1:64 (Neg:<1:64)
--- NOTE | 2018-09-15 14:50 | NUR ---
SVT 140 - LOPRESSOR 5MG SIVP - SEE V/S. NO DISTRESS.
--- NOTE | 2018-09-15 15:00 | NUR ---
NGT MEDICATIONS: PLACEMENT VERIFICATION FAILED - CLEARLY IN BACK OF THROAT - DISCONTINUED AND REQUEST SMALLER NGT FROM ER - SZ 10 MARY KAY. Addendum: 09/15/18 at 2000 by ARMIN JAVIER RN RN WRONG CHART
--- NOTE | 2018-09-15 15:40 | NUR ---
OGT: AFTER 6 ATTEMPTS BY 3 NURSES, SUCCEEDED WITH OGT IN PLACE AND VERIFIED. NO RESIDUAL BUT FLUSHES EASILY WITH PROBLEM. MEDS GIVEN AND CLAMPED. Addendum: 09/15/18 at 8 by ARMIN JAVIER RN RN WRONG CHART
--- NOTE | 2018-09-15 16:15 | NUR ---
ASSISTED BACK TO BED W ASSIST X2 - WITH P.T., THE PT LEANS BACKWARD WHEN HE STANDS TO WALK - USES WALKER AT HOME. PT EAGER TO GET PERFORMING CDB INSTRUCTED, DAUGHTER HELPING TO REMIND HIM AND DOES LEG AND ARM EXERCISES WELL.
[2018-09-15] MEDS ORDERED: METOPROLOL TARTRATE 25 MG TAB PO ONE (16:20)
--- NOTE | 2018-09-15 17:21 | NUR ---
Nutrition f/u: Pt with no significant dietary changes. Pt requesting RD speaks to daughter who was at bedside for dietary information and feedback. Daughter reports no nutritional concerns and requesting double portion of vegetables as pt prefers vegetables over meats. Diet order to be updated by ANGELIKA. Addendum: 09/15/18 at [address] Amended: Links added.
[2018-09-15] MEDS ORDERED: METOPROLOL TARTRATE 25 MG TAB ONE (17:39)
[2018-09-15 20:05] LABS: MAGNESIUM 1.9 mg/dL (1.80-2.40); POTASSIUM 3.8 mmol/L (3.5-5.1)
[2018-09-15] MEDS: SIMVASTATIN 20 MG TABLET PO SCH (20:38)
[2018-09-15] MEDS ORDERED: METOPROLOL TARTRATE 12.5 MG PO SCH (21:00)
[2018-09-16] VITALS (24 sets, daily range): BP systolic 90–124; BP diastolic 33–87
[2018-09-16] MEDS: IPRATROPIUM 0.5 MG/2.5 ML INH IH SCH ×5 (02:00→23:30)
--- NOTE | 2018-09-16 02:35 | NUR ---
NOTIFIED DR. SOLER OF PERSISTENT TACHYCARDIA 140'S. MD STATED TO KEEP MONITORING AND NO NEW ORDERS.
[2018-09-16] MEDS: FUROSEMIDE 10 MG/ML 2ML VIAL IV SCH ×3 (04:18→19:41)
[2018-09-16] MEDS: INSULIN HUMULIN R 100 UNIT/ML 3ML SQ SCH ×4 (06:10→21:07)
[2018-09-16 06:11] LABS: HEMATOCRIT 28.9 % (42-54); MEAN CORPUSCULAR HEMOGLOBIN 27.3 pg (27.0-33.0); MEAN CORPUSCULAR HGB CONC 33.2 g/dL (32.0-36.0); MEAN CORPUSCULAR VOLUME 82.2 fL (79-99); NUCLEATED RED BLOOD CELLS 0.1 % (0.0-0.19); PLATELET COUNT (AUTO) 210 K/uL (130-400); RED BLOOD CELL COUNT(AUTO) 3.51 MIL/uL (4.50-6.20); RED CELL DISTRIBUTION WIDTH 13.9 % (11.0-15.5); WHITE BLOOD COUNT (AUTO) 5.4 K/uL (4.8-10.8)
[2018-09-16 06:23] LABS: CREATININE 1.2 mg/dL (0.5-1.5); MAGNESIUM 2.4 mg/dL (1.80-2.40); PHOSPHORUS 3.1 mg/dL (2.5-4.9); POTASSIUM 3.5 mmol/L (3.5-5.1)
[2018-09-16] MEDS: POTASSIUM CHLORIDE 20MEQ/100ML 100 ML IV PRN (06:42)
[2018-09-16 06:47] LABS: B-TYPE NATRIURETIC PEPTIDE 3650 pg/mL (0-100)
--- NOTE | 2018-09-16 07:30 | NUR ---
PT RECEIVED IN BED, ASLEEP, EASILY AWOKE TO VERBAL STIMULI. NO C/O PAIN VOICED NO RESPIRATORY DISTRESS NOTED. HEART RATE AT 130-140s. PER REPORT, NIGHT NURSE CALLED DR. SOLER TO REPORT ELEVATED HEART RATE. NO NEW ORDERS RECEIVED AT THAT TIME. NO FAMILY PRESENT AT THE TIME. BLOOD PRESSURE RANGING FROM THE 70-90s SYSTOLIC. POC DISCUSSED WITH PATIENT. INSTRUCTED TO CONSERVE ENERGY AND NOT TO OVER STIMULATE. WILL CONT TO MONITOR.
[2018-09-16] MEDS: FAMOTIDINE 20MG TAB 20 MG TAB PO SCH (08:51)
[2018-09-16] MEDS: VANCOMYCIN 1.5 GM in SODIUM CHLORIDE 0.9% 250 ML IV SCH (08:51)
[2018-09-16] MEDS: FOLIC ACID 1 MG TABLET PO SCH (08:51)
[2018-09-16] MEDS: CYANOCOBALAMIN (VITAMIN B-12) 1,000 MCG TABLET PO SCH (08:51)
[2018-09-16] MEDS: CITALOPRAM 20 MG TABLET PO SCH (08:51)
[2018-09-16] MEDS: ASPIRIN 81MG TAB.CHEW PO SCH (08:51)
[2018-09-16] MEDS: OSELTAMIVIR PHOSPHATE 300 MG, COMPOUNDING VEHICLE SF NO.9 50 ML PO SCH ×4 (08:52→20:34)
[2018-09-16] MEDS: POTASSIUM CHLORIDE 20 MEQ ERTAB PO PRN ×2 (08:56→17:28)
--- NOTE | 2018-09-16 09:20 | NUR ---
RHYTHM CHANGE TO SINUS 90s, NOTED TO HAVE CHANGED WHILE PATIENT WAS COUGHING. WILL CONT TO MONITOR. FAMILY IS AT BEDSIDE, POC DISCUSSED WITH THEM. WILL CONT WITH DROPLET PRECAUTIONS. INSTRUCTED TO CALL FOR ASSISTANCE IF NEEDED.
--- NOTE | 2018-09-16 09:50 | NUR ---
MD JADYN CONNOR WITH DR. SOLER, HE SPOKE WITH FAMILY AND PATIENT. I UPDATED ON HEART RATE RANGING FROM 130-140s SINCE LAST NIGHT. UPDATED ON BP RANGING FROM 70-90 SYSTOLIC AND REPORTED ELEVATED BNP LEVEL. NEW ORDERS RECEIVED FOR METOPROLOL 12.5 MG BID. WILL CONT TO MONITOR CLOSELY.
[2018-09-16] MEDS: DOXYCYCLINE 100MG+NS 250ML 250 ML IV SCH ×2 (09:56→21:37)
[2018-09-16] MEDS: METOPROLOL TARTRATE 25 MG TAB PO SCH ×2 (09:56→20:33)
--- NOTE | 2018-09-16 10:15 | NUR ---
FOLLOW-UP COMPLETED. Pt CURRENTLY ON REGULAR TEXTURE, THIN LIQUIDS WITH COMPENSATORY STRATEGIES OF SEATED AT 90 DEGREES, SLOW RATE AND SMALL BITES AND SIPS. DAUGHTER PURCHASED CUP FOR VOLUME CONTROL FOR Pt. Pt TO USE CUP TO MODULATE VOLUME CONTROL DURING P.O. INTAKE. Pt CURRENTLY TOLERATING DIET WITH NO S/S OF ASPIRATION WITH THIN LIQUIDS. RECOMMEND Pt CONTINUES CURRENT DIET. DISCHARGE FROM SPEECH THERAPY AT THIS TIME. PLEASE CONSULT SPEECH THERAPY IN AN NEED BASIS. Addendum: 09/16/18 at 1221 by DENICE SINGH, [facility] ST Amended: Links added.
[2018-09-16] MEDS: ACETAMINOPHEN 325 MG TAB PO PRN (11:27)
--- NOTE | 2018-09-16 12:25 | NUR ---
MD ROUNDS DR. PUTNAM IN TO SEE PATIENT. SPOKE WITH FAMILY, QUESTIONS ANSWERED. NEW ORDERS RECEIVED TO BE CARRIED OUT. WILL CONT TO MONITOR.
[2018-09-16] MEDS: MEROPENEM 1 GM VIAL IVP SCH (13:06)
[2018-09-16] MEDS: FLUCONAZOLE 400 MG/NS 200 ML 200 ML IV SCH (13:06)
--- NOTE | 2018-09-16 14:26 | NUR ---
MD ROUNDS DR. KEMP IN TO SEE PATIENT AND SPEAK WITH FAMILY. NO NEW ORDERS AT THIS TIME. WILL CONT TO MONITOR.
--- NOTE | 2018-09-16 17:20 | NUR ---
HEART RATE NOTE BACK TO SINUS TACH 130s. PT REMAINS ASYMPTOMATIC. PT WITH HOB ELEVATED SITTING UP TO HAVE DINNER. FAMILY REMAINS AT BEDSIDE. WILL CONT TO MONITOR. WILL CONT TO MONITOR CLOSELY.
--- NOTE | 2018-09-16 19:00 | NUR ---
ASSESSMENT ASSUMED CARE. IN BED EYES CLOSED. APPEARS TO BE SLEEPING. RESPIRATIONS UNLABORED WITH O2 SAT 100% ON O2 2L NC. EASILY AROUSABLE. DENIES PAIN AND DISCOMFORT AT THIS TIME. REPORTS FEELING BETTER. AFEBRILE. BEDSIDE MONITORING SINUS TACHYCARDIA HR 130'S; ASYMPTOMATIC. DENIES PALPITATIONS, CHEST PAIN, DIZZINESS. DE LA O CATHETER SECURE;STRICT I&O MONITORING, PATIENT ON LASIX. BILATERAL LOWER EXTREMITY SCD'S. INSTRUCTED ON PLAN OF CARE. CALL LIGHT WITHIN REACH. INSTRUCTED TO CALL FOR ASSISTANCE. DAUGHTER AND SON IN LAW AT BEDSIDE. UPDATED. Addendum: 09/17/18 at 0631 by BETH HUANG RN RN BEDSIDE MONITORING REVEALS JUNCTIONAL TACHYCARDIA EVIDENCED BY INVERTED P WAVES IMMEDIATELY PRECEDING QRS. HR 130'S
[2018-09-16] MEDS: SIMVASTATIN 20 MG TABLET PO SCH (20:34)
[2018-09-16] MEDS ORDERED: METOPROLOL TARTRATE 25 MG TAB PO SCH (21:00)
[2018-09-16] MEDS: HYDROCODONE/ACETAMINOPHEN 5/325 MG TAB PO PRN (21:41)
[2018-09-17] VITALS (27 sets, daily range): BP systolic 72–157; BP diastolic 24–107
[2018-09-17] MEDS: MEROPENEM 1 GM VIAL IVP SCH ×2 (00:28→12:17)
[2018-09-17] MEDS ORDERED: PHARMACY COMMUNICATION MISC SCH (00:30)
[2018-09-17] MEDS ORDERED: WATER FOR INJECTION,STERILE 20 ML VIAL IJ SCH (01:00)
[2018-09-17] MEDS: FUROSEMIDE 10 MG/ML 2ML VIAL IV SCH (02:37)
--- NOTE | 2018-09-17 03:00 | NUR ---
SINUS TACHYCARDIA AWAKE, STATES UNABLE TO SLEEP, BUT DENIES PAIN. ENCOURAGED COUGH AND DEEP BREATHING. NOTED RHYTHM WITH A MORE DEFINITE P WAVE. APPEARS TO BE IN SINUS TACHYCARDIA NOW ALTHOUGH HEART RATE CONTINUES 120-130. CONTINUES ASYMPTOMATIC. COMFORT MEASURES PROVIDED. REPORTS FEELING COLD. AFEBRILE. PROVIDED BLANKET.
[2018-09-17 03:54] LABS: HEMATOCRIT 28.9 % (42-54); MEAN CORPUSCULAR HEMOGLOBIN 27.5 pg (27.0-33.0); MEAN CORPUSCULAR HGB CONC 33.5 g/dL (32.0-36.0); MEAN CORPUSCULAR VOLUME 82.3 fL (79-99); NUCLEATED RED BLOOD CELLS 0.1 % (0.0-0.19); PLATELET COUNT (AUTO) 230 K/uL (130-400); RED BLOOD CELL COUNT(AUTO) 3.51 MIL/uL (4.50-6.20); RED CELL DISTRIBUTION WIDTH 14.1 % (11.0-15.5); WHITE BLOOD COUNT (AUTO) 5.1 K/uL (4.8-10.8)
[2018-09-17 03:58] LABS: CREATININE 1.4 mg/dL (0.5-1.5); MAGNESIUM 1.7 mg/dL (1.80-2.40); POTASSIUM 3.7 mmol/L (3.5-5.1)
[2018-09-17] MEDS: MAGNESIUM 2GM PREMIX 50ML 50 ML IV SCH (04:50)
[2018-09-17] MEDS: POTASSIUM CHLORIDE 20 MEQ ERTAB PO PRN ×2 (04:51→07:49)
--- NOTE | 2018-09-17 05:30 | NUR ---
SINUS RHYTHM OUT OF BED TO BEDSIDE CHAIR. RHYTHM CHANGED TO SINUS HR 80'S.
[2018-09-17] MEDS: INSULIN HUMULIN R 100 UNIT/ML 3ML SQ SCH ×4 (06:28→21:27)
[2018-09-17] MEDS: IPRATROPIUM 0.5 MG/2.5 ML INH IH SCH ×4 (06:44→23:39)
--- NOTE | 2018-09-17 07:30 | NUR ---
PT RECEIVED IN BEDSIDE CHAIR, NO ACUTE DISTRESS, NO C/O PAIN. TELE WITH SINUS 80s, PER REPORT RATE CHANGE OCCURRED WHEN BEING ASSISTED TO BEDSIDE CHAIR. JANELL CONNOR WAS IN TO EVALUATE PATIENT. NEW ORDERS FOR METOPROLOL 25 MG PO BID RECEIVED. PATIENT UPDATED ON POC. CALL QUIÑONEZ IS WITHIN REACH, SPOUSE IS AT BEDSIDE. WILL CONT TO MONITOR. Addendum: 09/17/18 at 1013 by SUSU PARKER RN RN Amended: Links added.
[2018-09-17 07:31] LABS: HERPES SIMPLEX VIRUS-2 BY PCR Negative (Negative)
[2018-09-17] MEDS: CYANOCOBALAMIN (VITAMIN B-12) 1,000 MCG TABLET PO SCH (07:48)
[2018-09-17] MEDS: ASPIRIN 81MG TAB.CHEW PO SCH (07:48)
[2018-09-17] MEDS: FAMOTIDINE 20MG TAB 20 MG TAB PO SCH (07:48)
[2018-09-17] MEDS: METOPROLOL TARTRATE 25 MG TAB PO SCH ×2 (07:48→20:18)
[2018-09-17] MEDS: OSELTAMIVIR PHOSPHATE 300 MG, COMPOUNDING VEHICLE SF NO.9 50 ML PO SCH ×4 (07:49→20:21)
[2018-09-17] MEDS: CITALOPRAM 20 MG TABLET PO SCH (07:49)
[2018-09-17] MEDS: FOLIC ACID 1 MG TABLET PO SCH (07:49)
[2018-09-17] MEDS ORDERED: FUROSEMIDE 40 MG TABLET PO SCH (09:00)
[2018-09-17] MEDS: VANCOMYCIN 1.5 GM in SODIUM CHLORIDE 0.9% 250 ML IV SCH (09:46)
--- NOTE | 2018-09-17 11:50 | NUR ---
ROUNDS DR. PUTNAM IN TO SEE PATIENT. MD UPDATED ON STATUS. INFORMED HIM OF METOPROLOL CHANGES D/T INCREASED HEART RATE. ORDERS RECEIVED TO REMOVE DE LA O CATHETER. ORDERS TO BE CARRIED OUT.
[2018-09-17] MEDS: DOXYCYCLINE 100MG+NS 250ML 250 ML IV SCH ×2 (12:17→21:28)
[2018-09-17] MEDS: FLUCONAZOLE 400 MG/NS 200 ML 200 ML IV SCH (13:33)
--- NOTE | 2018-09-17 14:08 | NUR ---
ROUNDS DR. KEMP IN TO SEE PATIENT. UPDATED ON STATUS. NO CHANGES MADE TO MEDICATION REGIMEN. DE LA O CATHETER REMOVED, D/T VOID BY 1999. INSTRUCTED TO NOTIFY IF HAS LOWER PELVIC PAIN OR FEELS HE IS UNABLE TO URINATE.
--- NOTE | 2018-09-17 18:22 | NUR ---
PATIENT HAS VOIDED 140 ML CLEAR URINE. PATIENT REMAINS AT BEDSIDE CHAIR. NO ACUTE DISTRESS NOTED.
--- NOTE | 2018-09-17 19:00 | NUR ---
ASSESSMENT ASSUMED CARE. AA&OX3. SITTING IN BEDSIDE CHAIR. NO DISTRESS NOTED. O2 2L NC. UNLABORED RESPIRATIONS. DENIES PAIN AND DISCOMFORT AT THIS TIME. VISITORS IN ROOM. INSTRUCTED ON PLAN OF CARE. VERBALIZED UNDERSTANDING. BEDSIDE MONITORING SINUS RHYTHM HR 90. CALL LIGHT WITHIN REACH. INSTRUCTED TO CALL FOR ASSISTANCE.
--- NOTE | 2018-09-17 20:00 | NUR ---
WEAKNESS OUT OF CHAIR TO BEDSIDE COMMODE. BILATERAL LOWER EXTREMITIES VERY WEAK, TRANSFER REQUIRED 2 PERSON ASSIST. BM X1. PERICARE PROVIDED AND ASSISTED TO BED. INSTRUCTED ON FALL PRECAUTIONS/PREVENTION. VERBALIZED UNDERSTANDING. CALL LIGHT WITHIN REACH.
[2018-09-17] MEDS: SIMVASTATIN 20 MG TABLET PO SCH (20:18)
[2018-09-17] MEDS: HYDROCODONE/ACETAMINOPHEN 5/325 MG TAB PO PRN (20:19)
--- NOTE | 2018-09-17 20:32 | NUR ---
11 beat run wide complex tachycardia ASYMPTOMATIC. BP 111/47. NO SOB REPORTED. BACK TO SINUS RHYTHM HR 80'S. PAGED DR MARC THROUGH ANSWERING SERVICE. SCHEDULED METOPROLOL PO 25MG GIVEN.
--- NOTE | 2018-09-17 22:55 | NUR ---
AFIB RVR HR 120'S EPISODE LASTED 6 MIN. DENIES CHEST PAIN, PALPITATIONS, SOB, DIZZINESS. NOTED TO BE SLIGHTLY SOB ALTHOUGH MAINTAINED O2 SAT 100% ON 2 L NC. DAUGHTER AT BEDSIDE. UPDATED. PATIENT AND DAUGHTER INSTRUCTED ON ARRHYTHMIA AND INFORMED THEM THAT MD HAS BEEN PAGED. PAGED DR MARC ONCE AGAIN THROUGH ANSWERING SERVICE.
[2018-09-17] MEDS ORDERED: SODIUM CHLORIDE 0.9% 1000ML 0 ML IV ONE (23:17)
--- NOTE | 2018-09-17 23:18 | NUR ---
RECEIVED CALL BACK FROM DR MARC. INFORMED HIM OF ALL CURRENT EVENTS INCLUDING EPISODE OF 11 BT WIDE COMPLEX TACHYCARDIA AT 2031 AND 6MIN RUN OF AFIB RVR HR 120'S FROM 2255 TO 2301. INFORMED HIM OF PT'S MEDICAL HISTORY, LABS, AND MEDICATIONS. ORDER RECEIVED TO INITIATE CARDIZEM DRIP. UPDATED & INSTRUCTED PATIENT AND DAUGHTER REGARDING MEDICATION INDICATION AND POSSIBLE SIDE EFFECTS. VERBALIZED UNDERSTANDING. CURRENTLY BACK IN SINUS RHYTHM HR 88.
[2018-09-17] MEDS ORDERED: DILTIAZEM HCL 5 MG/ML 5 ML VIAL IVP ONE (23:20)
[2018-09-17] MEDS ORDERED: DILTIAZEM HCL 125 MG/25 ML 125 MG in SODIUM CHLORIDE 0.9% 100 ML IV PRN (23:30)
[2018-09-17] MEDS ORDERED: DILTIAZEM 125MG+100 ML NS 125 ML IV SCH (23:30)
[2018-09-17] MEDS ORDERED: DILTIAZEM HCL 5 MG/ML 5 ML VIAL IVP PRN (23:30)
[2018-09-18] VITALS (30 sets, daily range): BP systolic 82–124; BP diastolic 35–75
--- NOTE | 2018-09-18 | NUR ---
TOLERATING CARDIZEM DRIP MONITORING V/S PER PROTOCOL. NO COMPLAINTS AT THIS TIME. CONTINUES IN AFIB RVR HR 120'S. DAUGHTER AT BEDSIDE. UPDATED.
[2018-09-18] MEDS: MEROPENEM 1 GM VIAL IVP SCH (00:18)
--- NOTE | 2018-09-18 00:18 | NUR ---
SINUS RHYTHM CONVERTED TO SINUS RHYTHM. CARDIZEM DRIP CONTINUES. WILL CONTINUE TO MONITOR.
[2018-09-18 00:24] LABS: CREATININE 1.3 mg/dL (0.5-1.5); MAGNESIUM 1.8 mg/dL (1.80-2.40); POTASSIUM 4.1 mmol/L (3.5-5.1)
[2018-09-18] MEDS: MAGNESIUM 2GM PREMIX 50ML 50 ML IV SCH (00:35)
--- NOTE | 2018-09-18 00:35 | NUR ---
MAGNESIUM LEVEL 1.8 REPLACED PER PROTOCOL. MED TEACHING PROVIDED.
--- NOTE | 2018-09-18 06:15 | NUR ---
CONTINUES IN SINUS RHYTHM HR 80. AA&0X2. REORIENTED TO DATE AND TIME. NO DISTRESS NOTED.
[2018-09-18] MEDS: IPRATROPIUM 0.5 MG/2.5 ML INH IH SCH ×4 (07:04→23:15)
[2018-09-18] MEDS: INSULIN HUMULIN R 100 UNIT/ML 3ML SQ SCH ×4 (07:30→20:57)
[2018-09-18] MEDS ORDERED: METOPROLOL TARTRATE 1 MG/ML 5ML VIAL IV PRN (08:00)
--- NOTE | 2018-09-18 08:00 | NUR ---
DR. ROSE IN TO SEE PT. PLAN OF CARE DISCUSSED. NEW ORDERS RECEIVED AND NOTED. CARDIZEM OFF ORDERED. PT CONTINUES ON SR 82. CONTINUE TO MONITOR PT.
[2018-09-18] MEDS: OSELTAMIVIR PHOSPHATE 300 MG, COMPOUNDING VEHICLE SF NO.9 50 ML PO SCH ×2 (09:00)
[2018-09-18] MEDS: ASPIRIN 81MG TAB.CHEW PO SCH (09:05)
[2018-09-18] MEDS: CYANOCOBALAMIN (VITAMIN B-12) 1,000 MCG TABLET PO SCH (09:05)
[2018-09-18] MEDS: CITALOPRAM 20 MG TABLET PO SCH (09:05)
[2018-09-18] MEDS: VANCOMYCIN 1.5 GM in SODIUM CHLORIDE 0.9% 250 ML IV SCH (09:05)
[2018-09-18] MEDS: FAMOTIDINE 20MG TAB 20 MG TAB PO SCH (09:05)
[2018-09-18] MEDS: FOLIC ACID 1 MG TABLET PO SCH (09:05)
[2018-09-18] MEDS: FUROSEMIDE 10 MG/ML 4ML VIAL IV SCH ×2 (09:06→20:09)
[2018-09-18] MEDS: METOPROLOL TARTRATE 25 MG TAB PO SCH ×2 (09:11→20:53)
[2018-09-18] MEDS: DIGOXIN 250 MCG TABLET PO SCH (12:21)
[2018-09-18] MEDS: FLUCONAZOLE 400 MG/NS 200 ML 200 ML IV SCH (12:21)
[2018-09-18] MEDS: DOXYCYCLINE 100MG+NS 250ML 250 ML IV SCH ×2 (12:21→22:21)
--- NOTE | 2018-09-18 17:00 | NUR ---
REMAINS SR HR 70'S THROUGHOUT THE AFTERNOON/EVENING.
--- NOTE | 2018-09-18 19:14 | NUR ---
REPORTED OFF TO JAIDA JONES.
--- NOTE | 2018-09-18 20:00 | NUR ---
ASSESSMENT AWAKE. DENIES PAIN. ASSESSMENT COMPLETED SEE FLOW SHEET. ENCOURAGED TO CALL FOR WANTS OR NEEDS. FAMILY MEMBERS AT BEDSIDE. Addendum: 09/18/18 at 2037 by ROBERT LINO RN RN Amended: Links added.
[2018-09-18] MEDS: SIMVASTATIN 20 MG TABLET PO SCH (20:53)
[2018-09-19] VITALS (15 sets, daily range): BP systolic 92–141; BP diastolic 20–95
[2018-09-19 03:48] LABS: HEMATOCRIT 29.1 % (42-54); MEAN CORPUSCULAR HEMOGLOBIN 27.5 pg (27.0-33.0); MEAN CORPUSCULAR HGB CONC 33.4 g/dL (32.0-36.0); MEAN CORPUSCULAR VOLUME 82.2 fL (79-99); PLATELET COUNT (AUTO) 226 K/uL (130-400); RED BLOOD CELL COUNT(AUTO) 3.54 MIL/uL (4.50-6.20); RED CELL DISTRIBUTION WIDTH 14.1 % (11.0-15.5); WHITE BLOOD COUNT (AUTO) 6.1 K/uL (4.8-10.8)
[2018-09-19 03:58] LABS: B-TYPE NATRIURETIC PEPTIDE 1350 pg/mL (0-100)
[2018-09-19 04:03] LABS: CREATININE 1.3 mg/dL (0.5-1.5); POTASSIUM 3.7 mmol/L (3.5-5.1)
[2018-09-19] MEDS: INSULIN HUMULIN R 100 UNIT/ML 3ML SQ SCH ×4 (06:36→22:15)
[2018-09-19] MEDS: IPRATROPIUM 0.5 MG/2.5 ML INH IH SCH ×3 (06:48→18:53)
--- NOTE | 2018-09-19 08:00 | NUR ---
ASSESS: SCANT URINE OUTPUT VIA URINAL - STATES HE HAS BEEN URINATING LIKE THAT ALL NIGHT LONG - BLADDER DISTENDED AND TENDER TO TOUCH - REPORTS HISTORY OF PROSTATE PROBLEMS AND USED TO TAKE FLOMAX - DE LA O REINSERTED WITH OVER 900C CC'S URINE OUT WITHIN MINUTES. PT RELIEVED W/O BLADDER CRAMPING.
[2018-09-19] MEDS: FUROSEMIDE 10 MG/ML 4ML VIAL IV SCH (08:32)
[2018-09-19] MEDS: FOLIC ACID 1 MG TABLET PO SCH (08:32)
[2018-09-19] MEDS: DIGOXIN 125 MCG TABLET PO SCH (08:32)
[2018-09-19] MEDS: METOPROLOL TARTRATE 25 MG TAB PO SCH ×2 (08:33→23:27)
[2018-09-19] MEDS: FAMOTIDINE 20MG TAB 20 MG TAB PO SCH (08:33)
[2018-09-19] MEDS: ASPIRIN 81MG TAB.CHEW PO SCH (08:33)
[2018-09-19] MEDS: CITALOPRAM 20 MG TABLET PO SCH (08:33)
[2018-09-19] MEDS: CYANOCOBALAMIN (VITAMIN B-12) 1,000 MCG TABLET PO SCH (08:33)
[2018-09-19] MEDS: ENOXAPARIN SODIUM 40 MG/0.4 ML SYRINGE SQ SCH (08:33)
[2018-09-19] MEDS: DIGOXIN 250 MCG TABLET PO SCH (10:45)
[2018-09-19] MEDS: TAMSULOSIN HCL 0.4 MG CAP.ER.24H PO SCH (12:06)
[2018-09-19] MEDS: DOXYCYCLINE 100MG+NS 250ML 250 ML IV SCH ×2 (12:25→22:19)
[2018-09-19] MEDS: FLUCONAZOLE 400 MG/NS 200 ML 200 ML IV SCH (13:30)
[2018-09-19] MEDS ORDERED: SODIUM CHLORIDE 0.9% 500ML 500 ML IV ONE (13:34)
--- NOTE | 2018-09-19 13:45 | NUR ---
TRANSFERRED TO RM 232 VIA CARDIAC CHAIR - PT A/O X3 AND COOPERATIVE W/O DISTRESS - DR. ROSE MADE AWARE OF LOW MAP AND REQUESTS TO PROCEED WITH DISCHARGE. NO NEW ORDERS. REPORT TO FREYA SENA
--- NOTE | 2018-09-19 13:46 | NUR ---
RECEIVED PATIENT SITTING ON THE RECLINER, A/O X 4 WITH NO C/O DISCOMFORT. IV ANTIBIOTIC INFUSING VIA PUMP. DE LA O CATHETER IN PLACE. DRAINING BY GRAVITY. FAMILY MEMBERS AT BEDSIDE. CALL LIGHT WITHIN REACH. INSTRUCTED TO CALL FOR ASSISTANCE. PATIENT VERBALIZED UNDERSTANDING.
[2018-09-19] MEDS: FUROSEMIDE 40 MG TABLET PO SCH (16:58)
[2018-09-19] MEDS ORDERED: FUROSEMIDE 10 MG/ML 2ML VIAL IVP SCH (21:00)
[2018-09-19] MEDS: POTASSIUM CHLORIDE 20 MEQ ERTAB PO SCH (21:00)
[2018-09-19] MEDS ORDERED: POTASSIUM CHLORIDE 10 MEQ/TAB.SA PO ONE ×2 (22:11→22:12)
[2018-09-19] MEDS: SIMVASTATIN 20 MG TABLET PO SCH (22:19)
[2018-09-20] MEDS: IPRATROPIUM 0.5 MG/2.5 ML INH IH SCH ×5 (00:37→23:50)
[2018-09-20 02:52] VITALS: BP 104/49
[2018-09-20] MEDS: INSULIN HUMULIN R 100 UNIT/ML 3ML SQ SCH ×4 (07:25→21:58)
[2018-09-20 08:17] VITALS: BP 104/49
[2018-09-20] MEDS: ASPIRIN 81MG TAB.CHEW PO SCH (08:28)
[2018-09-20] MEDS: POTASSIUM CHLORIDE 20 MEQ ERTAB PO SCH ×2 (08:28→21:00)
[2018-09-20] MEDS: TAMSULOSIN HCL 0.4 MG CAP.ER.24H PO SCH (08:28)
[2018-09-20] MEDS: DIGOXIN 125 MCG TABLET PO SCH (08:28)
[2018-09-20] MEDS: FAMOTIDINE 20MG TAB 20 MG TAB PO SCH (08:28)
[2018-09-20] MEDS: FOLIC ACID 1 MG TABLET PO SCH (08:28)
[2018-09-20] MEDS: CITALOPRAM 20 MG TABLET PO SCH (08:28)
[2018-09-20] MEDS: FUROSEMIDE 40 MG TABLET PO SCH ×2 (08:29→16:49)
[2018-09-20] MEDS: ENOXAPARIN SODIUM 40 MG/0.4 ML SYRINGE SQ SCH (08:29)
[2018-09-20] MEDS: METOPROLOL TARTRATE 25 MG TAB PO SCH ×2 (08:29→22:01)
[2018-09-20] MEDS: CYANOCOBALAMIN (VITAMIN B-12) 1,000 MCG TABLET PO SCH (08:29)
[2018-09-20] MEDS: DIGOXIN 250 MCG TABLET PO SCH (10:29)
[2018-09-20] MEDS: FLUCONAZOLE 400 MG/NS 200 ML 200 ML IV SCH (11:51)
[2018-09-20 11:59] VITALS: BP 100/44
[2018-09-20 16:00] VITALS: BP 130/56
[2018-09-20 19:22] VITALS: BP 106/51
[2018-09-20] MEDS ORDERED: SODIUM CHLORIDE 0.9% 250 ML IV ONE (19:49)
[2018-09-20] MEDS ORDERED: POTASSIUM CHLORIDE 10 MEQ/TAB.SA PO ONE ×2 (21:52→21:54)
[2018-09-20] MEDS: SIMVASTATIN 20 MG TABLET PO SCH (22:01)
[2018-09-20 23:32] VITALS: BP 123/63
[2018-09-21 04:01] VITALS: BP 117/49
[2018-09-21] MEDS: IPRATROPIUM 0.5 MG/2.5 ML INH IH SCH ×3 (06:11→19:13)
[2018-09-21 06:36] LABS: ALBUMIN 2.9 g/dL (3.5-5.0); BILIRUBIN,TOTAL 0.5 mg/dL (0.2-1.0); CREATININE 1.3 mg/dL (0.5-1.5); POTASSIUM 3.6 mmol/L (3.5-5.1); TOTAL PROTEIN, SERUM 6.8 g/dL (6.0-8.3)
[2018-09-21] MEDS: INSULIN HUMULIN R 100 UNIT/ML 3ML SQ SCH ×4 (06:38→22:17)
[2018-09-21] MEDS ORDERED: POTASSIUM CHLORIDE 10 MEQ/TAB.SA PO ONE ×2 (07:02)
[2018-09-21 07:44] VITALS: BP 109/82
[2018-09-21] MEDS: DIGOXIN 250 MCG TABLET PO SCH (07:59)
[2018-09-21] MEDS: ASPIRIN 81MG TAB.CHEW PO SCH (09:30)
[2018-09-21] MEDS: CYANOCOBALAMIN (VITAMIN B-12) 1,000 MCG TABLET PO SCH (09:30)
[2018-09-21] MEDS: FAMOTIDINE 20MG TAB 20 MG TAB PO SCH (09:30)
[2018-09-21] MEDS: FOLIC ACID 1 MG TABLET PO SCH (09:30)
[2018-09-21] MEDS: FUROSEMIDE 40 MG TABLET PO SCH ×2 (09:31→17:10)
[2018-09-21] MEDS: CITALOPRAM 20 MG TABLET PO SCH (09:31)
[2018-09-21] MEDS: METOPROLOL TARTRATE 25 MG TAB PO SCH ×2 (09:31→21:00)
[2018-09-21] MEDS: TAMSULOSIN HCL 0.4 MG CAP.ER.24H PO SCH (09:31)
[2018-09-21] MEDS: DIGOXIN 125 MCG TABLET PO SCH (09:32)
[2018-09-21] MEDS: ENOXAPARIN SODIUM 40 MG/0.4 ML SYRINGE SQ SCH (09:33)
[2018-09-21] MEDS: POTASSIUM CHLORIDE 20 MEQ ERTAB PO SCH ×2 (09:33→22:01)
--- NOTE | 2018-09-21 11:07 | NUR ---
DYSPHAGIA RE-EVAL COMPLETED. +S/S OF ASPIRATION WITH THIN LIQUIDS VIA STRAW. PUREED, THIN LIQUIDS VIA CUP SIP; PILLS WHOLE WITH LIQUIDS PATIENT INFORMATION: PT IS A 73 YEAR OLD MALE REFERRED FOR A BEDSIDE DYSPHAGIA RE-EVAL SECONDARY TO CHOKING EPISODE YESTERDAY WITH SOLID. Pt WITH DAUGHTER AT BEDSIDE DURING THE EVALUATION. Pt REPORTS THAT HE WAS EATING POTATOES AND ONE OF THE SKINS GOT STUCK IN HIS THROAT. Pt CURRENTLY ADMITTED SECONDARY TO INFLUENZA. Pt HAS A PAST MEDICAL HISTORY SIGNIFICANT FOR ACUTE GASTROENTERITIS,LIKELY VIRAL, DEHYDRATION, HYPOTENSION, DMII, HYPERTENSION, GERD, HYPERLIPIDEMIA, DEPRESSION, DEMENTIA, CHRONIC KIDNEY DISEASE, MYOCARDIAL INFRACTION, LACTIC ACIDOSIS, HYPOMAGNESEMIA. MISSING UPPER DENTURES AT THE TIME OF THE EVALUATION. EVALUATION: Pt PRESENTS WITH MILD OROPHARYNGEAL DYSPHAGIA CAUSED BY MISSING DENTITION (NOT ABLE TO COMPENSATE), DECREASED ROTARY MOTION DURING MASTICATION, DELAYED PHARYNGEAL RESPONSE TIME, RAPID INTAKE AND LARGE VOLUMES OF BOLUS PER TRIAL RESULTING IN +S/S OF ASPIRATION WITH THIN LIQUIDS VIA STRAW OF SUPER COUGH. RECOMMENDATIONS: 1. PUREED, THIN LIQUIDS; PILLS WHOLE WITH LIQUIDS. 2. COMPENSATORY STRATEGIES: *SEATED AT 90 DEGREES *SMALL BITES AND SIPS *SLOW RATE *NO STRAW *VOLUME CONTROL Pt/FAMILY EDUCATED ON SAFE SWALLOW PRECAUTIONS AND RISKS & CONSEQUENCES OF ASPIRATION. THEY VERBALIZED UNDERSTANDING AND COMPLIANCE WITH RECOMMENDATIONS. G-CODES SWALLOWING: [id number] Addendum: 09/21/18 at [address] Amended: Links added.
[2018-09-21 11:17] VITALS: BP 99/30
[2018-09-21] MEDS: FLUCONAZOLE 400 MG/NS 200 ML 200 ML IV SCH (12:39)
--- NOTE | 2018-09-21 12:50 | NUR ---
RD Follow-up Note Patient tolerating 75gm CCD, Puree diet with no report of GI distress and PO intake at 100%. Patient family reports patient doing well with puree. Patient with no GI distress as per family. Patient LBM 09/18/18; RD to continue to monitor. Patient monitored labs: Cl 100, CO2 33, BUN 24, Cr 1.3, GFR 57, Alk Phos 138, Alb 2.9. RD to continue to monitor. Please notify RD as nutritional concerns arise. Thank you. Addendum: 09/21/18 at [address] Amended: Links added.
--- NOTE | 2018-09-21 14:46 | NUR ---
DC PLAN REFERRAL SENT TO [facility]. Addendum: 09/21/18 at 1447 by JENNIFER DYER RN CM Amended: Links added.
[2018-09-21 15:26] VITALS: BP 130/59
[2018-09-21 19:10] VITALS: BP 122/36
--- NOTE | 2018-09-21 21:00 | NUR ---
PT IN BED, MALDIVIAN SPEAKING. DAUGHTER AND AT BEDSIDE. NO DISTRESS NOTED. STATES NO PAIN OR SOB. GENERAL BODY WEAKNESS. PT REQUESTING TO BE ALLOWED TO WALK MORE OFTEN WITH PT. POTASSIUM COVERAGE PROVIDED DUE TO 3.6 LEVEL. [id number].
[2018-09-21] MEDS: SIMVASTATIN 20 MG TABLET PO SCH (22:00)
--- NOTE | 2018-09-21 22:35 | NUR ---
DR. STRANGE IN THE ROOM. DISCUSSING CARE WITH PT AND FAMILY. PLAN IS TO LEAVE CATHETER IN PLACE AND DISCONTINUE AT THE [facility]. NO NEW ORDERS.
[2018-09-21 23:19] VITALS: BP 137/54
[2018-09-22] MEDS: IPRATROPIUM 0.5 MG/2.5 ML INH IH SCH ×2 (00:03→05:51)
[2018-09-22 03:37] VITALS: BP 124/57
[2018-09-22] MEDS: INSULIN HUMULIN R 100 UNIT/ML 3ML SQ SCH ×4 (06:19→21:19)
[2018-09-22] MEDS: DIGOXIN 250 MCG TABLET PO SCH (07:50)
[2018-09-22 07:59] VITALS: BP 115/49
[2018-09-22] MEDS: TAMSULOSIN HCL 0.4 MG CAP.ER.24H PO SCH (09:47)
[2018-09-22] MEDS: ASPIRIN 81MG TAB.CHEW PO SCH (09:47)
[2018-09-22] MEDS: CYANOCOBALAMIN (VITAMIN B-12) 1,000 MCG TABLET PO SCH (09:47)
[2018-09-22] MEDS: FUROSEMIDE 40 MG TABLET PO SCH ×2 (09:48→17:02)
[2018-09-22] MEDS: FAMOTIDINE 20MG TAB 20 MG TAB PO SCH (09:48)
[2018-09-22] MEDS: FOLIC ACID 1 MG TABLET PO SCH (09:48)
[2018-09-22] MEDS: METOPROLOL TARTRATE 25 MG TAB PO SCH ×2 (09:48→20:51)
[2018-09-22] MEDS: CITALOPRAM 20 MG TABLET PO SCH (09:48)
[2018-09-22] MEDS: ENOXAPARIN SODIUM 40 MG/0.4 ML SYRINGE SQ SCH (09:49)
[2018-09-22] MEDS: DIGOXIN 125 MCG TABLET PO SCH (09:49)
[2018-09-22] MEDS: POTASSIUM CHLORIDE 20 MEQ ERTAB PO SCH ×2 (09:49→21:21)
[2018-09-22 11:39] VITALS: BP 96/62
--- NOTE | 2018-09-22 12:12 | NUR ---
FOLLOW-UP COMPLETED. Pt CURRENTLY TOLERATING PUREED, THIN LIQUID DIET WITH DECREASED TREMORS THAT WERE PRESENT DURING THE INITIAL EVALUATION. Pt WITH NO S/S OF ASPIRATION PRESENT DURING P.O. RECOMMEND Pt CONTINUES PUREED, THIN LIQUID DIET. Addendum: 09/22/18 at 1218 by DENICE SINGH, [facility] Amended: Links added.
[2018-09-22] MEDS: FLUCONAZOLE 400 MG/NS 200 ML 200 ML IV SCH (12:16)
[2018-09-22] MEDS ORDERED: SODIUM CHLORIDE 0.9% 250 ML IV ONE (12:20)
[2018-09-22 15:55] VITALS: BP 138/74
[2018-09-22 19:00] VITALS: BP 102/45
[2018-09-22] MEDS: SIMVASTATIN 20 MG TABLET PO SCH (21:21)
[2018-09-22 21:59] LABS: BASOPHILS % (AUTO) 0.5 % (0.0-5.0); EOSINOPHILS % (AUTO) 2.8 % (0.0-8.0); HEMATOCRIT 29.7 % (42-54); LYMPHOCYTES % (AUTO) 35.9 % (21.0-51.0); MEAN CORPUSCULAR HEMOGLOBIN 27.2 pg (27.0-33.0); MEAN CORPUSCULAR HGB CONC 32.7 g/dL (32.0-36.0); MONOCYTES % (AUTO) 7.9 % (3.0-13.0); NEUTROPHILS % (AUTO) 52.9 % (40.0-77.0); NUCLEATED RED BLOOD CELLS 0.1 % (0.0-0.19); PLATELET COUNT (AUTO) 191 K/uL (130-400); RED BLOOD CELL COUNT(AUTO) 3.58 MIL/uL (4.50-6.20); RED CELL DISTRIBUTION WIDTH 14.4 % (11.0-15.5); WHITE BLOOD COUNT (AUTO) 4.7 K/uL (4.8-10.8)
[2018-09-22 22:15] LABS: CREATININE 1.4 mg/dL (0.5-1.5); POTASSIUM 4.2 mmol/L (3.5-5.1)
--- NOTE | 2018-09-22 23:00 | NUR ---
PT HAS BEEN STABLE. NO DISTRESS NOTED. AAOX3. FAMILY AT BEDSIDE. STATES NO PAIN. WAS ABLE TO AMBULATE WITH ASSISTANCE AND BE ABLE TO SHOWER. PT HAS IMPROVED IN ACTIVITY LEVELS. STATES NO CONCERNS. HIS POTASSIUM IS NOW NORMAL RANGE. MAGNESIUM CONTINUES TO BE LOW AT 1.5, COVERAGE BEING PROVIDED VIA IV PROTOCOL.
[2018-09-22 23:10] VITALS: BP 108/68
[2018-09-23 03:22] VITALS: BP 109/43
[2018-09-23] MEDS: INSULIN HUMULIN R 100 UNIT/ML 3ML SQ SCH (06:43)
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
[2018-09-23 07:53] VITALS: BP 120/47
[2018-09-23] MEDS: FAMOTIDINE 20MG TAB 20 MG TAB PO SCH (08:19)
[2018-09-23] MEDS: DIGOXIN 125 MCG TABLET PO SCH (08:20)
[2018-09-23] MEDS: FUROSEMIDE 40 MG TABLET PO SCH (08:20)
[2018-09-23] MEDS: TAMSULOSIN HCL 0.4 MG CAP.ER.24H PO SCH (08:20)
[2018-09-23] MEDS: CYANOCOBALAMIN (VITAMIN B-12) 1,000 MCG TABLET PO SCH (08:20)
[2018-09-23] MEDS: CITALOPRAM 20 MG TABLET PO SCH (08:21)
[2018-09-23] MEDS: METOPROLOL TARTRATE 25 MG TAB PO SCH (08:21)
[2018-09-23] MEDS: ASPIRIN 81MG TAB.CHEW PO SCH (08:21)
[2018-09-23] MEDS: FOLIC ACID 1 MG TABLET PO SCH (08:21)
[2018-09-23] MEDS: POTASSIUM CHLORIDE 20 MEQ ERTAB PO SCH (08:21)
[2018-09-23] MEDS: DIGOXIN 250 MCG TABLET PO SCH (10:45)
[2018-09-23 11:44] VITALS: BP 96/51
[2018-09-23] MEDS: FLUCONAZOLE 400 MG/NS 200 ML 200 ML IV SCH (12:50)
--- NOTE | 2018-09-23 16:38 | NUR ---
DC PLAN SPOKE TO [facility] PATIENT ACCEPTED. DC PLAN FOR TODAY. PATIENT NOT ABLE TO AMBULATE WITH OUT ASSISTANCE. PATIENT POOR TRUNK CONTROL AND BALANCE ISSUES ONLY AMBULATED 20 FT TODAY. Addendum: 09/23/18 at 1639 by JENNIFER DYER RN CM Amended: Links added.
[2018-09-23 16:39] VITALS: BP 110/60
--- NOTE | 2018-09-23 18:00 | NUR ---
DISCHARGE TO [facility], PIV REMOVED AND INTACT.
== END 2018-09-23 17:45 | DRG 871 ==
LOC: EDH 17:30 → OBSVTOIN 22:46 → EDHIP 22:46 → 3AH 09-09 17:28 → 2CH 09-12 15:59 → 2AH 09-19 13:51
PROVIDERS: ADMIT Internal Medicine Critical Care Medicine; ATTEND Internal Medicine Critical Care Medicine
PROC: 009U3ZX Drainage of Spinal Canal, Percutaneous Approach, Diagnostic (ICD-10-PCS; principal; 2018-09-11)
PROC: B01B1ZZ Fluoroscopy of Spinal Cord using Low Osmolar Contrast (ICD-10-PCS; 2018-09-11)
PROC: 02HV33Z Insertion of Infusion Device into Superior Vena Cava, Percutaneous Approach (ICD-10-PCS; 2018-09-14)
DX: A41.9 Sepsis, unspecified organism (principal); I50.43 Acute on chronic combined systolic (congestive) and diastolic (congestive) heart failure; A92.30 West Nile virus infection, unspecified; J96.90 Respiratory failure, unspecified, unspecified whether with hypoxia or hypercapnia; J18.9 Pneumonia, unspecified organism; I42.9 Cardiomyopathy, unspecified; I13.0 Hypertensive heart and chronic kidney disease with heart failure and stage 1 through stage 4 chronic kidney disease, or unspecified chronic kidney disease; E87.2 Acidosis; D61.818 Other pancytopenia; E46 Unspecified protein-calorie malnutrition; I47.1 Supraventricular tachycardia; A08.4 Viral intestinal infection, unspecified; D46.9 Myelodysplastic syndrome, unspecified; D63.8 Anemia in other chronic diseases classified elsewhere; E11.22 Type 2 diabetes mellitus with diabetic chronic kidney disease; E11.51 Type 2 diabetes mellitus with diabetic peripheral angiopathy without gangrene; E11.65 Type 2 diabetes mellitus with hyperglycemia; Z68.28 Body mass index [BMI] 28.0-28.9, adult; E78.5 Hyperlipidemia, unspecified; E83.42 Hypomagnesemia; E86.0 Dehydration; E87.6 Hypokalemia; F03.90 Unspecified dementia, unspecified severity, without behavioral disturbance, psychotic disturbance, mood disturbance, and anxiety; F32.9 Major depressive disorder, single episode, unspecified; I25.10 Atherosclerotic heart disease of native coronary artery without angina pectoris; I25.5 Ischemic cardiomyopathy; I48.0 Paroxysmal atrial fibrillation; J84.10 Pulmonary fibrosis, unspecified; K21.9 Gastro-esophageal reflux disease without esophagitis; N18.3 Chronic kidney disease, stage 3 (moderate); N40.1 Benign prostatic hyperplasia with lower urinary tract symptoms; R29.6 Repeated falls; R33.8 Other retention of urine; R62.7 Adult failure to thrive; I25.2 Old myocardial infarction; Z74.01 Bed confinement status; Z79.82 Long term (current) use of aspirin; Z79.899 Other long term (current) drug therapy; Z95.1 Presence of aortocoronary bypass graft; Z95.0 Presence of cardiac pacemaker; Z87.891 Personal history of nicotine dependence; Z83.3 Family history of diabetes mellitus
CPT/HCPCS: 36415; 36600; 62270; 70450; 71045; 71250; 72125; 72131; 74176; 80048; 80053; 80061; 80076; 80202; 80305; 81001; 82009; 82140; 82150; 82550; 82803; 82948; 83605; 83615; 83690; 83735; 83880; 84100; 84132; 84443; 84480; 84484; 85025; 85027; 85610; 85651; 85730; 86038; 86140; 86215; 86431; 86701; 86757; 86788; 87040; 87071; 87088; 87205; 87390; 87483; 87486; 87529; 87581; 87633; 87798; 87804; 87880; 89051; 92526; 92610; 93005; 93306; 94640; 94664; 97039; A4218; A4344; C1894; G0378; J0153; J1170; J1450; J1650; J1815; J1940; J1956; J2185; J2405; J2543; J3370; J3475; J3480; J3490; J7030; J7040; J7120; P9046

== ENCOUNTER → 2019-03-23 | Outpatient (CLI) | payer OTHER, MEDICARE ==
[~2019-03-23] MED LIST changes: -ASPI-1197 PO; +ASPI-555 PO; +CHOL200074 PO; -CHOL500050 PO; +CYAN500T46 PO; -DOXY100C2 PO; +FERR-82 PO; -FERS325 PO; +FOLI0.4T2 PO; -FOLIC ACID PO; -GLIM4TAB3 PO; -LEVO5TAB13 PO; -MECL-129 PO; -METF-444 PO; +METF-446 PO; -METO-391 PO; +METO25 PO; -SIMV20TA6 PO; +SIMV40TA59 PO; -TAMS0.4C32 PO; -VITAMIN B12 PO
== END | disposition home or self-care (01) ==
LOC: SHCH 12:52
PROVIDERS: ATTEND Internal Medicine Cardiovascular Disease
DX: I65.23 Occlusion and stenosis of bilateral carotid arteries (principal)
CPT/HCPCS: 93880